=== PATIENT | female | born 1980 | race Caucasian/White ===

== ENCOUNTER 2020-09-07 06:11 | Outpatient (REF) | payer BC, SELFPAY ==
[2020-09-07 12:08] LABS: Alanine Aminotransferase 37 U/L (0-31); Albumin Level 3.9 g/dL (3.5-5.0); Alkaline Phosphatase 96 U/L (39-117); Anion Gap 13 (12-20); Aspartate Amino Transferase 30 U/L (5-31); Bilirubin Total < 0.2 mg/dL (0.0-1.0); Blood Urea Nitrogen 18 mg/dL (9-16); Calcium 8.4 mg/dL (8.4-10.2); Carbon Dioxide 26 mmol/L (22-29); Chloride 105 mmol/L (96-108); Cholesterol 199 mg/dL; Estimated Glomerular Filt Rate > 60; Glucose Fasting 106 mg/dL (60-99); HDL Cholesterol 45 mg/dL; LDL Cholesterol Calculated 123 mg/dl; Potassium 4.2 mmol/L (3.3-5.1); Sodium 140 mmol/L (135-145); Total Protein 6.9 g/dL (6.5-8.0); Triglycerides 158 mg/dL
[2020-09-07 12:14] LABS: TSH reflex Free T4 4.41 uIU/mL (0.32-4.0)
[2020-09-07 12:32] LABS: Vitamin B12 578 pg/mL (200-900)
[2020-09-07 13:28] LABS: Free T4 (Free Thyroxine) 0.82 ng/dL (0.71-1.85)
== END 2020-09-07 06:12 | disposition home or self-care (01) ==
LOC: HO.HMGCLDS 06:11
PROVIDERS: PCP Nurse Practitioner Family; Visit Provider Nurse Practitioner Family
DX: Z00.00 Encounter for general adult medical examination without abnormal findings (principal); R20.0 Anesthesia of skin; R74.8 Abnormal levels of other serum enzymes
CPT/HCPCS: 36415; 80053; 80061; 82607; 84439; 84443

== ENCOUNTER 2020-09-26 07:03 | Outpatient (REF) | payer BC, SELFPAY ==
[2020-09-27 06:06] LABS: Thyroid Peroxidase Antibodies <1 IU/mL (<9)
== END 2020-09-26 07:04 | disposition home or self-care (01) ==
LOC: HO.WFDLDS 07:03
PROVIDERS: Visit Provider Nurse Practitioner Family
DX: R79.89 Other specified abnormal findings of blood chemistry (principal)
CPT/HCPCS: 36415; 84443; 86376

== ENCOUNTER 2020-09-28 08:50 | Outpatient (REF) | payer BC, SELFPAY ==
--- NOTE | ~2020-09-28 | US_ITS ---
EXAMINATION: US ABDOMEN COMPLETE CLINICAL INFORMATION: Abnormal levels of other serum enzymes. COMPARISON: None TECHNIQUE: Real-time imaging of the abdominal viscera. FINDINGS: PANCREAS: The head and neck of the pancreas are normal. The body and tail the pancreas are obscured by gas. ABDOMINAL AORTA: The proximal, mid, and distal segments are normal in caliber. INFERIOR VENA CAVA: Visualized portions are normal. LIVER: The liver is mildly increased in echogenicity. The liver is normal in size. The liver contour is normal. No focal hepatic lesion. There is no intrahepatic biliary duct dilatation seen. GALLBLADDER: Surgically absent. COMMON BILE DUCT: Normal in caliber measuring 0.56 cm in diameter. RIGHT KIDNEY: Normal. No hydronephrosis. No renal calculi or focal parenchymal lesions. The kidney measures 8.9 cm in maximum dimension. LEFT KIDNEY: Normal. No hydronephrosis. No renal calculi or focal parenchymal lesions. The kidney measures 10.1 cm in maximum dimension. SPLEEN: Normal. The spleen measures 9.9 cm in maximum dimension. FREE FLUID: None. US/US abdomen complete IMPRESSION: 1. Mild increase in liver echogenicity which is typically reflective of hepatic steatosis. 2. Status post cholecystectomy. No dilatation of intrahepatic bile ducts.
== END 2020-09-28 08:51 | disposition home or self-care (01) ==
LOC: HO.HMGCX 08:50
PROVIDERS: PCP Nurse Practitioner Family; Visit Provider Nurse Practitioner Family
DX: R74.8 Abnormal levels of other serum enzymes (principal)
CPT/HCPCS: 76700

== ENCOUNTER 2020-10-24 09:07 | Outpatient (REF) | payer BC, SELFPAY ==
[2020-10-27 09:57] LABS: HPV mRNA E6/E7 rflx Not Detected (Not Detected)
== END 2020-10-24 09:08 | disposition home or self-care (01) ==
LOC: HO.LAB 09:07
PROVIDERS: PCP Nurse Practitioner Family; Visit Provider Advanced Practice Midwife
DX: Z01.419 Encounter for gynecological examination (general) (routine) without abnormal findings (principal); Z11.51 Encounter for screening for human papillomavirus (HPV); Z80.9 Family history of malignant neoplasm, unspecified
CPT/HCPCS: 87624; 88142

== ENCOUNTER 2020-10-31 08:12 | Outpatient (REF) | payer BC, SELFPAY ==
--- NOTE | ~2020-10-31 | MM_ITS ---
EXAMINATION: MM SCREENING DIGITAL BREAST TOMOSYNTHESIS, BILATERAL CLINICAL INFORMATION: Screening. Asymptomatic. No prior breast imaging. Family history breast cancer, maternal aunt. The lifetime risk of breast cancer based on the Tyrer-Cuzick Model is 17%. COMPARISON: None (current study represents initial baseline exam). TECHNIQUE: Digital breast tomosynthesis is performed in both the craniocaudal and mediolateral oblique views along with computer-aided detection (CAD). Synthesized 2D images are generated from the tomosynthesis. Additional right view is provided. FINDINGS: There are scattered areas of fibroglandular density (ACR BI-RADS breast composition Category b). Breast tissue composition borders on heterogeneously the anterior upper outer quadrants. There is no significant mass or architectural abnormality or abnormal calcifications. The axilla and skin contours are unremarkable. MM/MM tomosynthesis screening BI IMPRESSION: No mammographic evidence of malignancy. ASSESSMENT: BI-RADS 1: Negative RECOMMENDATION: Routine annual mammography screening. This patient's information was entered into a reminder system with a target due date for their next mammogram.
== END 2020-10-31 08:13 | disposition home or self-care (01) ==
LOC: HO.MAMMO 08:12
PROVIDERS: Visit Provider Nurse Practitioner Family
DX: Z12.31 Encounter for screening mammogram for malignant neoplasm of breast (principal)
CPT/HCPCS: 77063; 77067

== ENCOUNTER 2020-12-05 | Outpatient (REF) | payer BC, SELFPAY ==
[2020-12-05 14:38] LABS: Leukocytes Stool Qualitative NEGATIVE (NEGATIVE)
[2020-12-05 15:44] LABS: CDiff Gene PCR POSITIVE (Negative)
[2020-12-05 16:19] LABS: CDIFF Internal ctrl Dots and bkg OK (V); CDiff Toxin Negative (Negative)
== END 2020-12-05 00:01 | disposition home or self-care (01) ==
LOC: HO.HMGCLNP
PROVIDERS: Visit Provider Nurse Practitioner Family
DX: R19.7 Diarrhea, unspecified (principal)
CPT/HCPCS: 87045; 87046; 87177; 87209; 87324; 87329; 87338; 87493; 89055

== ENCOUNTER 2021-01-18 | Outpatient (REF) | payer BC, SELFPAY ==
[2021-01-18 15:09] LABS: CDiff Gene PCR POSITIVE (Negative)
[2021-01-18 15:58] LABS: CDIFF Internal ctrl Dots and bkg OK (V); CDiff Toxin Negative (Negative)
== END 2021-01-18 00:01 | disposition home or self-care (01) ==
LOC: HO.HMGCLNP
PROVIDERS: Visit Provider Hospitalist
DX: B96.89 Other specified bacterial agents as the cause of diseases classified elsewhere (principal)
CPT/HCPCS: 87324; 87493

== ENCOUNTER → 2021-02-06 08:09 | Outpatient (BNVA) | payer BC, SELFPAY | PROVIDERS: PCP Nurse Practitioner Family; Referring Provider Nurse Practitioner Family; Visit Provider Physician Assistant ==

== ENCOUNTER → 2021-07-16 14:08 | Outpatient (BNVA) | payer BC, SELFPAY | PROVIDERS: PCP Nurse Practitioner Family; Visit Provider Physician Assistant ==

== ENCOUNTER 2021-07-31 08:35 | Outpatient (REF) | payer BC, SELFPAY ==
[2021-07-31 10:47] LABS: MANUAL DIFF FLAG NO
[2021-07-31 10:50] LABS: Basophils Absolute Auto 0.1 X10*3/uL (0.0-0.2); Basophils Percent Auto 0.5 % (0-2); Eosinophils Absolute Auto 0.1 X10*3/uL (0.0-0.4); Eosinophils Percent Auto 1.1 % (0-4); Hematocrit 37.7 % (37.0-47.0); Hemoglobin 11.9 g/dl (12.0-16.0); Imm Gran Abs Auto 0.04 X10*3/uL (0.00-0.03); Imm Gran Pct Auto 0.4 % (0.0-0.4); Lymphocytes Absolute Auto 2.8 X10*3/uL (1.2-4.9); Lymphocytes Percent Auto 29.4 % (20-40); Mean Corpuscular HGB Conc 31.6 g/dl (31.0-35.0); Mean Corpuscular Hemoglobin 28.3 pg (27.0-33.0); Mean Corpuscular Volume 89.5 fL (80.0-98.0); Mean Platelet Volume 10.4 fL (9.4-12.3); Monocytes Absolute Auto 0.5 X10*3/uL (0.1-1.2); Neutrophils Absolute Auto 6.1 x10*3/uL (2.0-8.3); Neutrophils Percent Auto 63.6 % (45-73); Platelet Count 402 X10*3/uL (160-400); Red Blood Count 4.21 X10*6/uL (4.20-5.50); White Blood Count 9.6 X10*3/uL (4.8-10.8)
[2021-07-31 11:10] LABS: Alanine Aminotransferase 19 U/L (0-31); Alkaline Phosphatase 95 U/L (39-117); Anion Gap 11 (12-20); Aspartate Amino Transferase 14 U/L (5-31); Bilirubin Total 0.3 mg/dL (0.0-1.0); Blood Urea Nitrogen 9 mg/dL (9-16); C Reactive Protein 2.98 mg/dL (< or = 0.50); Calcium 9.2 mg/dL (8.4-10.2); Carbon Dioxide 26 mmol/L (22-29); Chloride 105 mmol/L (96-108); Estimated Glomerular Filt Rate > 60; Glucose Random 113 mg/dL (60-115); Potassium 4.2 mmol/L (3.3-5.1); Sodium 138 mmol/L (135-145); Total Protein 7.1 g/dL (6.5-8.0)
[2021-07-31 11:22] LABS: TSH reflex Free T4 1.57 uIU/mL (0.32-4.0); Thyroid Stimulating Hormone 1.58 uIU/mL (0.32-4.0)
[2021-07-31 11:30] LABS: Erythrocyte Sedimentation Rate 18 MM/HR (0-20)
[2021-08-02 08:02] LABS: Transglutaminase IgA <1.0 U/mL
== END 2021-07-31 08:36 | disposition home or self-care (01) ==
LOC: HO.WFDLDS 08:35
PROVIDERS: Nurse Practitioner Family; Visit Provider Physician Assistant
DX: K59.09 Other constipation (principal); R19.7 Diarrhea, unspecified
CPT/HCPCS: 36415; 80053; 84443; 85025; 85652; 86140; 86364

== ENCOUNTER 2021-08-05 09:49 | Outpatient (REF) | payer BC, SELFPAY ==
[2021-08-05 12:15] LABS: CDiff Gene PCR NEGATIVE (Negative)
[2021-08-05 16:54] LABS: C Reactive Protein 2.27 mg/dL (< or = 0.50)
[2021-08-05 17:40] LABS: Erythrocyte Sedimentation Rate 18 MM/HR (0-20)
[2021-08-09 20:56] LABS: Calprotectin, Fecal 19 mcg/g
== END 2021-08-05 09:50 | disposition home or self-care (01) ==
LOC: HO.WFDLNP 09:49
PROVIDERS: PCP Nurse Practitioner Family; Visit Provider Physician Assistant
DX: R19.7 Diarrhea, unspecified (principal)
CPT/HCPCS: 83993; 85652; 86140; 87493

== ENCOUNTER 2021-09-02 08:31 | Outpatient (REF) | payer BC, SELFPAY ==
[2021-09-02 11:29] LABS: MANUAL DIFF FLAG NO
[2021-09-02 11:38] LABS: Appearance Urine CLEAR; Color Urine YELLOW; Glucose Urine UA NEG (NEG); Leukocyte Esterase Urine NEG (NEG); Nitrite Urine NEG (NEG); PH 5.5 (5.0-8.0); Specific Gravity - Urine >= 1.030 (1.005-1.025); UACC Culture Trigger NO; Urine Blood 2+ (NEG); Urine Ketones NEG (NEG); Urine Protein NEG (NEG-TRACE)
[2021-09-02 11:49] LABS: Mucus Urine 2+ /LPF; Squamous Epithelial Cell Urine 1+ /LPF; WBC Urine 0 /HPF (0-4)
[2021-09-02 11:50] LABS: Basophils Percent Auto 0.5 % (0-2); Eosinophils Absolute Auto 0.1 X10*3/uL (0.0-0.4); Eosinophils Percent Auto 1.5 % (0-4); Hematocrit 39.4 % (37.0-47.0); Hemoglobin 12.5 g/dl (12.0-16.0); Imm Gran Abs Auto 0.03 X10*3/uL (0.00-0.03); Imm Gran Pct Auto 0.4 % (0.0-0.4); Lymphocytes Absolute Auto 2.4 X10*3/uL (1.2-4.9); Lymphocytes Percent Auto 28.7 % (20-40); Mean Corpuscular HGB Conc 31.7 g/dl (31.0-35.0); Mean Corpuscular Hemoglobin 28.8 pg (27.0-33.0); Mean Corpuscular Volume 90.8 fL (80.0-98.0); Mean Platelet Volume 11.1 fL (9.4-12.3); Monocytes Absolute Auto 0.4 X10*3/uL (0.1-1.2); Neutrophils Absolute Auto 5.3 x10*3/uL (2.0-8.3); Neutrophils Percent Auto 63.9 % (45-73); Platelet Count 361 X10*3/uL (160-400); Red Blood Count 4.34 X10*6/uL (4.20-5.50); Red Cell Distribution Width 13.8 % (11.0-16.0); White Blood Count 8.2 X10*3/uL (4.8-10.8)
[2021-09-02 11:58] LABS: Alanine Aminotransferase 18 U/L (0-31); Albumin Level 4.1 g/dL (3.5-5.0); Alkaline Phosphatase 88 U/L (39-117); Anion Gap 10 (12-20); Aspartate Amino Transferase 12 U/L (5-31); Bilirubin Total 0.5 mg/dL (0.0-1.0); Blood Urea Nitrogen 10 mg/dL (9-16); Calcium 9.6 mg/dL (8.4-10.2); Carbon Dioxide 28 mmol/L (22-29); Chloride 107 mmol/L (96-108); Cholesterol 187 mg/dL; Estimated Glomerular Filt Rate > 60; Glucose Fasting 107 mg/dL (60-99); HDL Cholesterol 42 mg/dL; LDL Cholesterol Calculated 101 mg/dl; Potassium 4.3 mmol/L (3.3-5.1); Sodium 141 mmol/L (135-145); Total Protein 7.2 g/dL (6.5-8.0); Triglycerides 221 mg/dL
[2021-09-02 12:25] LABS: TSH reflex Free T4 1.55 uIU/mL (0.32-4.0)
== END 2021-09-02 08:32 | disposition home or self-care (01) ==
LOC: HO.HMGCLDS 08:31
PROVIDERS: PCP Nurse Practitioner Family; Visit Provider Nurse Practitioner Family
DX: Z00.00 Encounter for general adult medical examination without abnormal findings (principal); R53.83 Other fatigue
CPT/HCPCS: 36415; 80053; 80061; 81001; 84443; 85025

== ENCOUNTER 2021-10-15 11:11 | Day surgery (SDC) | payer BC, SELFPAY ==
--- NOTE | 2021-10-14 13:22 | P.CONAN_ITS ---
Documented by User: Shira Salazar NP 10/14/21 13:23 HPI - Anesthesia Eval Consult details Narrative: 41yo F for Colonoscopy PMFSH Active Problems Active Problems: All Active Problems (Updated 09/02/21 @ 12:55 by Angel Manning, [facility]) Fatigue (Acute) C. difficile diarrhea (Acute) Diarrhea (Acute) Elevated liver enzymes (Acute) Elevated TSH (Acute) Family history of uterine cancer (Acute) Family history of ovarian cancer (Acute) Screening for breast cancer (Acute) Numbness in both hands (Acute) Physical exam (Acute) Screening for cervical cancer (Acute) Past Medical History Medical History C. difficile diarrhea Fatty liver Family History Family History Father Hx of diabetes mellitus Mother Hx of diabetes mellitus Maternal Aunt History of breast cancer Cervical cancer Mother Ovarian cancer Uterine cancer Surgical History Surgical History History of carpal tunnel release Hx of cholecystectomy Hx of oral surgery Social History Social History Housing: House Alcohol intake: current Alcohol intake frequency: a few times a month Patient Tobacco Use Status: Never used Tobacco Second Hand Smoke Exposure: No Use of substances other than those prescribed or required for medical reasons: No Are you DNR?: No Advance Directives: No Advance Directives Information Provided: Yes Recently lost weight without trying: No Current occupational status: employed Sexual orientation: Lesbian/Gregg/Homosexual Meds Allergies Allergy/AdvReac Type Severity Reaction Status Date / Time No Known Allergies Allergy Verified 09/02/21 08:16 [No Known Allergies*] Exam Exam Date and Time: October 14, 2021 1322 Pertinent Lab Results Pertinent Lab Results: Laboratory Tests 09/02/21 09/02/21 08:39 08:39 WBC 8.2 Hgb 12.5 Hct 39.4 Plt Count 361 Sodium 141 Potassium 4.3 Chloride 107 Carbon Dioxide 28 BUN 10 Creatinine 0.76 Assessment and Plan Assessment Anesthesia Assessment: Chart Reviewed Documented by User: Althea Montez MD 10/15/21 13:01 PMFSH Past Medical History Medical History C. difficile diarrhea Fatty liver Family History Family History Father Hx of diabetes mellitus Mother Hx of diabetes mellitus Maternal Aunt History of breast cancer Cervical cancer Mother Ovarian cancer Uterine cancer Surgical History Surgical History History of carpal tunnel release Hx of cholecystectomy Hx of oral surgery History of Problems with Anesthesia: No Social History Social History Housing: House Alcohol intake: current Alcohol intake frequency: a few times a month Patient Tobacco Use Status: Never used Tobacco Second Hand Smoke Exposure: No Use of substances other than those prescribed or required for medical reasons: No Are you DNR?: No Advance Directives: No Advance Directives Information Provided: Yes Recently lost weight without trying: No Current occupational status: employed Sexual orientation: Lesbian/Gregg/Homosexual Meds Allergies Allergy/AdvReac Type Severity Reaction Status Date / Time No Known Allergies Allergy Verified 09/02/21 08:16 [No Known Allergies*] Exam Airway Mallampati Class: II TM Dist: >3cm Neck ROM: Full Loose/Missing/Broken Teeth: No Heart: RRR Lungs: CTA Assessment and Plan Assessment Anesthesia Assessment: Anesthesia Plan Discussed Final Anesthetic Review History of Problems with Anesthesia: No NPO: Yes ASA Class: II Final Preanesthetic Review: Meds/Allgs Chart Reviewed, Consent Obtained/Reviewed and Anes Risks/Benef Reviewed Patient Risk: Low Procedure Risk: Intermediate Anesthetic Plan Anesthetic Plan: MAC: Disposition: Standard PACU
[2021-10-15 11:44] VITALS: BMI 38.0
[2021-10-15 11:52] LABS: UPreg QC Valid YES; Urine Pregnancy NEGATIVE (NEGATIVE)
[2021-10-15 12:24] VITALS: BP 143/96; PULSE 98; RESP 18; TEMP 36.6; O2SAT 98
[2021-10-15] MEDS: Lactated Ringers 1,000 ML 100 ML IVCONT (12:27)
--- NOTE | 2021-10-15 12:28 | P.HPSUR_ITS ---
Pre-Procedural Eval Section A Date of Service: 10/15/21 Section B Chief Complaint: Diarrhea, Details of Present Illness: altered bowel habit, epigastric pain, fullness Relevant Family History (Specify if Yes): No Relevant Social History: None Present Medications: see Short Stay Collaborative assessment History of Previous Operations: Relevant previous surgery/procedure and date(s) (History of carpal tunnel release Hx of cholecystectomy Hx of oral surgery) Allergies: Allergies Allergy/AdvReac Type Severity Reaction Status Date / Time No Known Allergies Allergy Verified 09/02/21 08:16 [No Known Allergies*] Review of Systems Sugical H&P ROS: Negative: Constitution, Cardiovascular, Respiratory, Neurological, Psychiatric, Hem-Onc, Allergic/Immunologic, Gastrointestinal, Genitourinary, Musculoskeletal, Integumentary, Endocrine and Eyes/Ears/Nose/T hroat Exam Surgical H&P Exam: Normal: HEENT, Normal: Heart, Normal: Lungs, Normal: Extremities, Normal: Abdomen, Normal: Skin and Normal: Neurological Plan Diagnosis/Plan: Change (EGD added due to epigastric pain and fullness to r/o PUD, GOO etc) I have reviewed the history and physical and performed a pertinent physical examination on my patient. No changes have occurred unless specified.EGD added
--- NOTE | 2021-10-15 12:29 | PM.OP ---
Brief Operative Note Date of Service: 10/15/21 Pre-op diagnosis: altered bowel habit, epigastric pain, fullness Post-op diagnosis: same Procedure: see op note Surgeon: Lani Zabala MD Anesthesia: MAC Was an Sand Control Worker used for this Procedure?: No Estimated blood loss (mL): 0 Condition: stable Disposition: PACU
--- NOTE | 2021-10-15 12:30 | W.PM.OPN ---
Operative Note Operative Note Date of Service: 10/15/21 Narrative: Operative Information Procedure Description: EGD, Colonoscopy Indication: altered bowel habit, epigastric pain, fullness Anesthesia: MAC FLEXIBLE TRANSORAL UPPER GASTROINTESTINAL ENDOSCOPY AND COLONOSCOPY PROCEDURE NOTE UPPER ENDOSCOPY Consent: Indications for the procedure and potential complications of bleeding, perforation, reaction to medications and missed diagnosis were discussed with the patient and informed consent was obtained. Instrument: Olympus GIF H 190 J mid size upper endoscope Monitoring: Vital signs and clinical assessment, continuous EKG monitoring, Pulse oximetry, Carbon Dioxide monitoring and blood pressure monitoring were done throughout the procedure. Procedure: The patient was placed in the left lateral decubitis position and pre-procedure medications were administered and a bite block was placed. The endoscope was inserted into the mouth and advanced under direct vision to the third part of duodenum. A careful inspection was made as the upper endoscope was withdrawn including a retroflexed examination of the proximal stomach; Findings and interventions are described below. Findings: Larynx:normal Esophagus: GE junction at 35 cm, diaphragm hiatus at 37 cm, 2 cm sliding hiatal hernia noted. erosive streaks noted LA grade C erosive esophagitis Stomach: patchy erythema. Biopsies were obtained. Grade 2 flap valve on retroflexed examination of the cardia. There also appeared to be reduced gastric motility. Duodenum: Normal bulb and descending duodenum, bx taken Intervention: Biopsies as noted above COLONOSCOPY Instrument: Olympus variable stiffness pediatric scope 190L Colonoscopy Monitoring: Vital signs and clinical assessment, continuous EKG monitoring, Pulse oximetry, Carbon Dioxide monitoring and blood pressure monitoring were done throughout the procedure. Colon withdrawal time was 10 minutes. Procedure: The patient was placed in the left lateral decubitis position and pre-procedure medications were administered. After a digital rectal examination of the ano-rectum, the video colonoscope was inserted into the rectum and advanced through the colon to the cecum/TI. The colonoscope was slowly withdrawn in a retrograde panoramic fashion and the colon mucosa was carefully examined including a retroflexed view of the rectum. Findings and interventions are described below. Procedure Difficulty: easy Findings: Terminal Ileum-normal, bx taken random colon bx taken Cecum:normal Ascending Colon: normal Transverse Colon -normal Descending Colon:normal Sigmoid Colon:few small inverted tics noted Rectum: Retroflexion with small internal hemorrhoids, grade I, 10 mm sessile polyp removed with cold snare Anorectum - normal Colon preparation: [place] Bowel Preparation Scale Right colon; 3 Transverse colon: 3 Left colon; 3 (0 = Unprepared colon segment with mucosa not seen due to solid stool that cannot be cleared. 1 = Portion of mucosa of the colon segment seen, but other areas of the colon segment not well seen due to staining, residual stool and/or opaque liquid. 2 = Minor amount of residual staining, small fragments of stool and/or opaque liquid, but mucosa of colon segment seen well. 3 = Entire mucosa of colon segment seen well with no residual staining, small fragments of stool or opaque liquid) Impression and Post Procedure Diagnosis: Endoscopy Findings: erosive esophagitis hiatal hernia, small gastritis possible reduced gastric motility Colonoscopy Findings: polyp internal hemorrhoids diverticular disease Plan: Await Pathology results Repeat Colonoscopy in 5 years if adenomatous polyp, 10 yrs if hyperplastic or earlier if clinically indicated High fiber diet leaflet avoid straining at stool, epsom salts and sitz bath, anusol supps or cream Check nsaid hx and if using PPI, if not using PPI then can try omeprazole 40 mg BID for 3 months and titrate down based on response Above findings were reviewed with the patient and relevant handouts were provided if indicated.
[2021-10-15 13:15] VITALS: BP 107/69; PULSE 87; RESP 18; TEMP 36.4; O2SAT 100
[2021-10-15 13:30] VITALS: BP 136/96; PULSE 89; RESP 18; TEMP 36.4; O2SAT 99
== END 2021-10-15 13:56 | disposition home or self-care (01) ==
PROVIDERS: Nurse Practitioner; PCP Nurse Practitioner Family; Visit Provider Internal Medicine Gastroenterology
PROC: (CPT 45385; principal; 2021-10-15 13:00)
DX: R19.7 Diarrhea, unspecified (principal); K63.5 Polyp of colon; K62.1 Rectal polyp; K64.0 First degree hemorrhoids; K29.50 Unspecified chronic gastritis without bleeding; K20.80 Other esophagitis without bleeding; K44.9 Diaphragmatic hernia without obstruction or gangrene; K76.0 Fatty (change of) liver, not elsewhere classified; Z86.19 Personal history of other infectious and parasitic diseases; Z90.49 Acquired absence of other specified parts of digestive tract; Z79.899 Other long term (current) drug therapy
CPT/HCPCS: 45385; 45380; 43239; 81025; 88305; 88307; 88342

== ENCOUNTER → 2021-10-29 15:02 | Outpatient (BNVA) | payer BC, SELFPAY | PROVIDERS: PCP Nurse Practitioner Family; Visit Provider Physician Assistant | DX: R19.7 Diarrhea, unspecified (principal) ==

== ENCOUNTER 2021-11-11 08:32 | Outpatient (REF) | payer BC, SELFPAY ==
--- NOTE | ~2021-11-11 | MM_ITS ---
EXAMINATION: MM SCREENING DIGITAL BREAST TOMOSYNTHESIS, BILATERAL CLINICAL INFORMATION: Screening. Asymptomatic. The lifetime risk of breast cancer based on the Tyrer-Cuzick Model is 12.0%. COMPARISON: Mammography: October 31, 2020 TECHNIQUE: Digital breast tomosynthesis is performed in both the craniocaudal and mediolateral oblique views along with computer-aided detection (CAD). Synthesized 2D images are generated from the tomosynthesis. FINDINGS: The breasts are heterogeneously dense, which may obscure small masses (ACR BI-RADS breast composition Category c). There are no significant masses, abnormal calcifications, or other abnormalities. MM/MM tomosynthesis screening BI IMPRESSION: There are no significant changes from prior study. ASSESSMENT: BI-RADS 1: Negative RECOMMENDATION: Routine annual mammography screening. This patient's information was entered into a reminder system with a target due date for their next mammogram.
== END 2021-11-11 08:33 | disposition home or self-care (01) ==
LOC: HO.MAMMO 08:32
PROVIDERS: PCP Nurse Practitioner Family; Visit Provider Nurse Practitioner Family
DX: Z12.31 Encounter for screening mammogram for malignant neoplasm of breast (principal)
CPT/HCPCS: 77063; 77067

== ENCOUNTER → 2021-11-12 13:44 | Outpatient (BNVA) | payer BC, SELFPAY | PROVIDERS: PCP Nurse Practitioner Family; Referring Provider Nurse Practitioner Family; Visit Provider Physician Assistant | DX: R19.7 Diarrhea, unspecified (principal) ==

== ENCOUNTER 2022-12-01 08:05 | Outpatient (REF) | payer BC, SELFPAY ==
--- NOTE | ~2022-12-01 | MM_ITS ---
EXAMINATION: MM SCREENING DIGITAL BREAST TOMOSYNTHESIS, BILATERAL CLINICAL INFORMATION: Screening. Asymptomatic. The lifetime risk of breast cancer based on the Tyrer-Cuzick Model is 12%. COMPARISON: Mammography: 11/11/2021, 10/31/2020 (baseline) TECHNIQUE: Digital breast tomosynthesis is performed in both the craniocaudal and mediolateral oblique views along with computer-aided detection (CAD). Synthesized 2D images are generated from the tomosynthesis. FINDINGS: There are scattered areas of fibroglandular density (ACR BI-RADS breast composition Category b). There are no significant masses, abnormal calcifications, or other abnormalities. Breast tissue composition borders on heterogeneously dense in the anterior breasts similar to prior studies. There is no developing density or architectural abnormality. The axilla and skin contours are unremarkable. MM/MM tomosynthesis screening BI IMPRESSION: No mammographic evidence of malignancy. ASSESSMENT: BI-RADS 1: Negative RECOMMENDATION: Routine annual mammography screening. This patient's information was entered into a reminder system with a target due date for their next mammogram.
== END 2022-12-01 08:06 | disposition home or self-care (01) ==
LOC: HO.MAMMO 08:05
PROVIDERS: PCP Nurse Practitioner Family; Visit Provider Nurse Practitioner Family
DX: Z12.31 Encounter for screening mammogram for malignant neoplasm of breast (principal)
CPT/HCPCS: 77063; 77067

== ENCOUNTER 2023-09-30 13:26 | Outpatient (AMB) | payer BC, SELFPAY ==
--- NOTE | 2023-09-30 13:33 | MHC.PC.OV ---
Vital Signs 09/30/23 13:35 Height 5 ft 3 in Weight 221 lb 4 oz BMI 39.2 BP 122/82 Blood Pressure Location Rt brachial Position Sitting Pulse 68 Pulse Source Pulse Oximeter Pulse Oximetry (%) 99 Oxygen Delivery Method Room Air Intake Visit Reasons: Annual PE Intake Note: Patient here for physical exam. last mammo: 2022 due this year last Pap: [id number] Allergies No Known Allergies [No Known Allergies*] Allergy (Verified 09/30/23 13:35) Medication List - Last Reconciled 09/30/23 by CHAPO Gaona metformin 1,500 mg PO DAILY omeprazole 40 mg PO BID Tobacco use date assessed: 09/30/23 Dental Screening Dental Screen Date: 09/30/23 Did you have a dental visit in the last 12 months?: Yes Did you have a dental problem in the last 6 months where you did not have access to dental care?: No Was dental information given to patient?: Patient has dentist HPI Annual PE HPI Details Pt is here for a PE. Will order labs. Mammo is up to date. 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 [facility] Medical History C. difficile diarrhea Fatty liver Surgical History Hx of esophagogastroduodenoscopy Hx of colonoscopy History of carpal tunnel release Hx of oral surgery Hx of cholecystectomy Family History Father Hx of diabetes mellitus Mother Hx of diabetes mellitus Maternal Aunt History of breast cancer Cervical cancer Mother Ovarian cancer Uterine cancer Social History Household Members Other:: Recently Housing: House Alcohol intake: current Alcohol intake frequency: a few times a month Patient Tobacco Use Status: Never used Tobacco Second Hand Smoke Exposure: No Current occupational status: employed Sexual orientation: Lesbian/Gregg/Homosexual Cognitive needs: No Hearing needs: No Vision needs: Yes Questionnaire PHQ-9 Over the last 2 weeks, how often have you been bothered by any of the following problems? 1. Little interest or pleasure in doing things: not at all 2. Feeling down, depressed, or hopeless: not at all 3. Trouble falling or staying asleep, or sleeping too much: several days 4. Feeling tired or having little energy: several days 5. Poor appetite or overeating: not at all 6. Feeling bad about yourself - or that you are a failure or have let yourself or your family down: not at all 7. Trouble concentrating on things, such as reading the newspaper or watching television: not at all 8. Moving or speaking so slowly that other people could have noticed. Or the opposite - being so fidgety or restless that you have been moving around a lot more than usual: not at all 9. Thoughts that you would be better off or of hurting yourself in some way: not at all Total score: 2 Depression Screening Interpretation: Negative Depression Screening Done: Yes 67193 - PHQ-9 Billing: Yes Source: Developed by Drs. Rubén Collins, Marilee Vilchis, Cricket Carvajal and colleagues, with an educational kathryn from [employer]. Thrive Questionnaire Date Thrive assessed: 09/30/23 I am a: Patient What is your living situation today?: I have a steady place to live Within the past 12 months, did the food you bought not last and you didn't have the money to get more?: Never true Within the past 12 months, did you worry whether your food would run out before you got money to buy more?: Never true Do you have trouble paying for medicines?: No Do you have trouble getting transportation to medical appointments?: No Do you have trouble paying your heating and electricity bill?: No Do you have trouble taking care of your child, family member or friend?: No Do you have trouble with day-to-day activities such as bathing, preparing meals, shopping, managing finances, etc.?: No Are you currently unemployed and looking for a job?: No Are you interested in more education?: Yes Currently or been in a relationship where the following occur: I choose not to answer this question THRIVE Score: 0 AUDIT C Alcohol Use Questionnaire (AUDIT-C) 1. How often do you have a drink containing alcohol?: Monthly or less 2. How many drinks containing alcohol do you have on a typical day when you are drinking?: 1 or 2 3. How often do you have six or more drinks on one occasion?: Never Total Score: 1 Score Reviewed/Action Taken: No MONICA-7 AMB Questionnaire MONICA-7 Date MONICA - 7 assessed: 09/30/23 Feeling nervous, anxious, or on edge: 0 = Not at all Not being able to stop or control worryin = Not at all Worrying too much about different things: 0 = Not at all Trouble relaxin = Not at all Being so restless that it is hard to sit still: 0 = Not at all Becoming easily annoyed or irritable: 0 = Not at all Feeling afraid as if something awful might happen: 0 = Not at all Total MONICA-7 score (0-4 normal; 5-9 mild; 10-14 moderate; 15-21 severe): 0 Source: Developed by Drs. Rubén Collins, Marilee Vilchis, Cricket Carvajal and colleagues, with an educational kathryn from [employer]. MONICA-7 Assessment Billing MONICA-7 Assessment Tool: MONICA-7 Assessment 64391 Review of Systems Const Denies chills and Denies fever(s) Eyes Denies blurry vision ENT Denies vertigo, Denies dizziness and Denies sore throat Card Denies chest pain at rest, Denies chest pain with activity, Denies diaphoresis, Denies dyspnea and Denies dyspnea on exertion Resp Denies cough, Denies dyspnea, Denies dyspnea on exertion and Denies wheezing GI Denies abdominal pain, Denies melena, Denies hematochezia, Denies constipation, Denies diarrhea and Denies loose stools Denies hematuria Musc Denies numbness and Denies tingling Skin/Breast Denies lesions Neuro Denies vertigo, Denies dizziness, Denies numbness and Denies tingling Psych Denies anxiety, Denies depression, Denies homicidal ideation, Denies suicidal ideation and Denies other (substance abuse) Aller/Immun Denies wheezing Physical exam (Primary Care) Vital Signs: Last Vital Signs Pulse 68 09/30/23 13:35 BP 122/82 09/30/23 13:35 Pulse Ox 99 09/30/23 13:35 Oxygen Delivery Method Room Air 09/30/23 13:35 BMI result Body Mass Index 39.2 Tobacco/Smoking Status: Tobacco use Status Tobacco use date assessed 09/30/23 09/30/23 13:40 Patient Tobacco Use Status Never used Tobacco 09/30/23 13:35 Depression Screening Interpretation: Negative Thrive Assessment: Date of Thrive Assessment Date Thrive assessed 09/02/21 09/30/23 13:35 Currently or been in a relationship where the following occur: I choose not to answer this question Const General: cooperative Nutritional Appearance: obese Orientation/consciousness: patient oriented x3 HENMT Head: Yes normal to inspection, Yes normocephalic and Yes atraumatic Ears: TM's normal bilaterally Eyes General: appearance normal, both eyes and all related structures Alignment and Position: alignment normal and position normal Neck Neck: Yes normal visual inspection and Yes no lymphadenopathy Thyroid: Thyroid normal Resp Effort & Inspection: normal respiratory effort Auscultation: clear to auscultation bilaterally Cardio Rate: regular rate Rhythm: regular rhythm Heart sounds: S1 normal heart sound present, S2 normal heart sound present and no murmurs GI Palpation (GI): Soft to palpation and nontender Auscultation: normal bowel sounds Skin Rashes: no rashes Neuro General: patient oriented x3, moves all extremities, no focal motor deficits and deep tendon reflexes 2+ bilaterally Romberg Test: Negative Psych Appearance: grossly normal Mental Status: mental status grossly normal Speech and movement: Normal speech and movement present Affect: normal affect Attitude: cooperative Thought process: Normal thought process present Thought content: Normal thought content present Insight: Good insight present (Psych) Judgement: Good judgement present (Psych) Assessment and Plan Assessment & Plan (1) Physical exam: Code(s): Z.00 - Encounter for general adult medical examination without abnormal findings Plan The patient agreed to the use of a biomedical repair technician for this encounter. Scribed for CHAPO Carter by Estella Santos biomedical repair technician, on 09/30/2023 at 13:50 EST. Orders: Orders Complete Blood Count Auto Diff Today Z00.00 - Encounter for general adult medical examination without abnormal findings Comprehensive [place]. Panel Fast Today Z00.00 - Encounter for general adult medical examination without abnormal findings TSH reflex Free T4 Today Z00.00 - Encounter for general adult medical examination without abnormal findings UA CC w/rflx Micro + Cult Today Z00.00 - Encounter for general adult medical examination without abnormal findings Lipid Panel Today Z00.00 - Encounter for general adult medical examination without abnormal findings Coding Level of Care Code Est Pt Prev Care 40-64y(65501) Diagnoses Physical exam Z00.00 Additional Codes MONICA-7 Assessment Billing - MONICA-7 Assessment Tool: MONICA-7 Assessment 91807 ([id number])
[2023-09-30 13:35] VITALS: BP 122/82; PULSE 68; O2SAT 99; BMI 39.2
== END 2023-09-30 14:03 | disposition home or self-care (01) ==
PROVIDERS: PCP Nurse Practitioner Family; Visit Provider Nurse Practitioner Family
DX: Z00.00 Encounter for general adult medical examination without abnormal findings (principal)
CPT/HCPCS: 99396

== ENCOUNTER 2023-11-13 10:41 | Outpatient (REF) | payer BC, SELFPAY ==
[2023-11-13 14:31] LABS: MANUAL DIFF FLAG NO
[2023-11-13 14:39] LABS: Basophils Absolute Auto 0.1 X10*3/uL (0.0-0.2); Basophils Percent Auto 0.5 % (0-2); Eosinophils Absolute Auto 0.1 X10*3/uL (0.0-0.4); Hematocrit 38.7 % (37.0-47.0); Hemoglobin 12.3 g/dl (12.0-16.0); Imm Gran Abs Auto 0.06 X10*3/uL (0.00-0.03); Imm Gran Pct Auto 0.7 % (0.0-0.4); Lymphocytes Absolute Auto 2.8 X10*3/uL (1.2-4.9); Lymphocytes Percent Auto 30.9 % (20-40); Mean Corpuscular HGB Conc 31.8 g/dl (31.0-35.0); Mean Corpuscular Hemoglobin 28.3 pg (27.0-33.0); Mean Platelet Volume 10.8 fL (9.4-12.3); Monocytes Absolute Auto 0.4 X10*3/uL (0.1-1.2); Monocytes Percent Auto 4.6 % (2-11); Neutrophils Absolute Auto 5.7 x10*3/uL (2.0-8.3); Neutrophils Percent Auto 62.3 % (45-73); Platelet Count 350 X10*3/uL (160-400); Red Blood Count 4.35 X10*6/uL (4.20-5.50); Red Cell Distribution Width 14.6 % (11.0-16.0); White Blood Count 9.1 X10*3/uL (4.8-10.8)
[2023-11-13 14:58] LABS: Appearance Urine Turbid; Color Urine Yellow; Glucose Urine UA Negative (Negative); Leukocyte Esterase Urine Negative (Negative); Nitrite Urine Negative (Negative); PH 5.5 (5.0-9.0); Specific Gravity - Urine 1.025 (1.005-1.025); UMIC TRIGGER UACC YES; Urine Blood Moderate (2+) (Negative); Urine Ketones Trace mg/dL (Negative); Urine Protein Trace mg/dL (Neg-Trace)
[2023-11-13 15:07] LABS: Alanine Aminotransferase 16 U/L (0-31); Albumin Level 4.1 g/dL (3.5-5.0); Alkaline Phosphatase 83 U/L (39-117); Anion Gap 9 (12-20); Aspartate Amino Transferase 16 U/L (5-31); Bilirubin Total 0.3 mg/dL (0.0-1.0); Blood Urea Nitrogen 10 mg/dL (9-16); Calcium 9.2 mg/dL (8.4-10.2); Carbon Dioxide 28 mmol/L (22-29); Chloride 108 mmol/L (96-108); Cholesterol 202 mg/dL (<200); Estimated Glomerular Filt Rate > 60; Glucose Fasting 103 mg/dL (60-99); HDL Cholesterol 47 mg/dL (>40); LDL Cholesterol Calculated 119 mg/dL (<100); Potassium 3.7 mmol/L (3.3-5.1); Sodium 141 mmol/L (135-145); Total Protein 7.4 g/dL (6.5-8.0); Triglycerides 182 mg/dL (<150)
[2023-11-13 15:10] LABS: TSH reflex Free T4 1.64 uIU/mL (0.32-4.0)
[2023-11-13 15:24] LABS: Bacteria Urine None Seen (None Seen); Calcium Oxalate Crystals Urine Present; WBC Urine 0-5 /HPF (0-5)
== END 2023-11-13 10:42 | disposition home or self-care (01) ==
LOC: HO.WFDLDS 10:41
PROVIDERS: Visit Provider Nurse Practitioner Family
DX: Z00.00 Encounter for general adult medical examination without abnormal findings (principal)
CPT/HCPCS: 36415; 80053; 80061; 81001; 84443; 85025

== ENCOUNTER → 2023-12-03 08:30 | Outpatient (BNV) | payer BC, SELFPAY | PROVIDERS: PCP Nurse Practitioner Family; Visit Provider Radiology Diagnostic Radiology | DX: Z12.31 Encounter for screening mammogram for malignant neoplasm of breast (principal) | CPT/HCPCS: 77063; 77067 ==

== ENCOUNTER 2023-12-03 08:32 | Outpatient (REF) | payer BC, SELFPAY | END 2023-12-03 08:33 | disposition home or self-care (01) | LOC: HO.MAMMO 08:32 | PROVIDERS: PCP Nurse Practitioner Family; Visit Provider Nurse Practitioner Family | DX: Z12.31 Encounter for screening mammogram for malignant neoplasm of breast (principal) | CPT/HCPCS: 77063; 77067 ==

== ENCOUNTER 2024-10-26 12:51 | Outpatient (AMB) | payer BC, SELFPAY ==
[2024-10-26 12:56] VITALS: BP 120/72; PULSE 63; O2SAT 98; BMI 38.8
--- NOTE | 2024-10-26 12:56 | MHC.PC.OV ---
Vital Signs 10/26/24 12:56 Height 5 ft 3 in Weight 219 lb BMI 38.8 BP 120/72 Blood Pressure Location Lt brachial Position Sitting Pulse 63 Pulse Source Pulse Oximeter Pulse Oximetry (%) 98 Oxygen Delivery Method Room Air Intake Visit Reasons: PE Tafe Lecturer Required: No Accompanied by: Self / Same As Patient Allergies No Known Allergies [No Known Allergies*] Allergy (Verified 10/26/24 12:56) Medication List - Last Reconciled 10/26/24 by LUZ MARIA Gaona- estradiol 2 mg PO DAILY medroxyprogesterone 10 mg PO DAILY omeprazole 40 mg PO BID Tobacco use date assessed: 10/26/24 Dental Screening Dental Screen Date: 10/26/24 Did you have a dental visit in the last 12 months?: Yes Did you have a dental problem in the last 6 months where you did not have access to dental care?: No Was dental information given to patient?: Patient has dentist HPI PE HPI Details History of Present Illness The patient is a 44-year-old female presenting with fertility-related concerns alongside possible diabetes mellitus. She is engaged in fertility testing and aspires to conceive a child with her partner. She acknowledges her obesity status and reports regular dermatological care due to prior incidents of moles and skin tags, mostly on her back. She has a history of consulting with an vacuum frame operator, notably with normal thyroid test results. The patient's concern for diabetes is being actively addressed through plans to obtain a fasting blood sugar test, with her commitment to fasting as directed. She denies a range of systemic symptoms and expresses no mental health concerns at this time. Health Maintenance - Screening for diabetes mellitus with fasting blood sugar testing planned. - Continuous monitoring of thyroid function with normal recent results. - Regular dermatological examinations and treatments. 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 - Regular consultations with a endocrinology teacher for skin-related issues. Review of Systems - Constitutional: Denies fevers and chills. - Respiratory: Denies shortness of breath. - Gastrointestinal: Denies abdominal pain, blood in stool, constipation, and diarrhea. - Mental health: Denies suicidal ideation and homicidal ideation. - Physical Exam General: Cooperative, healthy appearing, comfortable, no acute distress and well developed, obese Orientation: Patient oriented x3 Limitations: No limitations Head: Normal to inspection Ears: Hearing grossly normal bilaterally Nose: Normal external nose present Face and sinus: Normal facial exam Eyes: Appearance normal, both eyes and all related structures Neck: Normal visual inspection and Yes full ROM Respiratory: Normal respiratory effort and able to speak in complete sentences. Clear to auscultation bilaterally Cardiovascular: Regular rate and rhythm. Normal S1 and S2 GI: Normal to inspection. Soft to palpation and nontender Skin: No rashes or lesions noted, patient sees a endocrinology teacher regularly and has had moles and skin tags removed Neuro: Patient oriented x3 Extremities: Normal to inspection, patient is more obese Results Plan I will proceed with a fasting blood sugar test to evaluate the possibility of diabetes mellitus, given the patient's concern. Her current engagement in fertility testing with specialists is appropriate. The patient should continue regular dermatological care and monitoring. No immediate changes are required to her current medical approach until diagnostic test results are reviewed. Discussion Notes During the consultation, I discussed with the patient the potential for diabetes and the process for confirming it through a fasting blood sugar test. We reviewed the necessity of fasting and the implications of positive findings. The patient is also informed about her continued fertility testing with specialists and maintains routine dermatological appointments. I emphasized the need for follow-up should any concerning symptoms develop or if results indicate further action. Patient Instructions - Fast for 12 hours with only water allowed before the fasting blood sugar test. - Continue working with fertility specialists on family planning. - Maintain regular dermatology appointments for skin evaluations and any further concerns. - Report any new symptoms or changes in health immediately. [facility] Medical History C. difficile diarrhea Fatty liver Surgical History Hx of esophagogastroduodenoscopy Hx of colonoscopy History of carpal tunnel release Hx of oral surgery Hx of cholecystectomy Family History Father Hx of diabetes mellitus Mother Hx of diabetes mellitus Maternal Aunt History of breast cancer Cervical cancer Mother Ovarian cancer Uterine cancer Social History Household Members Other:: Recently Housing: House Alcohol intake: current Alcohol intake frequency: a few times a month Patient Tobacco Use Status: Never used Tobacco Second Hand Smoke Exposure: No Current occupational status: employed Sexual orientation: Lesbian/Gregg/Homosexual Cognitive needs: No Hearing needs: No Vision needs: Yes Questionnaire PHQ-9 Over the last 2 weeks, how often have you been bothered by any of the following problems? 1. Little interest or pleasure in doing things: not at all 2. Feeling down, depressed, or hopeless: not at all 3. Trouble falling or staying asleep, or sleeping too much: several days 4. Feeling tired or having little energy: several days 5. Poor appetite or overeating: not at all 6. Feeling bad about yourself - or that you are a failure or have let yourself or your family down: not at all 7. Trouble concentrating on things, such as reading the newspaper or watching television: not at all 8. Moving or speaking so slowly that other people could have noticed. Or the opposite - being so fidgety or restless that you have been moving around a lot more than usual: not at all 9. Thoughts that you would be better off or of hurting yourself in some way: not at all Total score: 2 Depression Screening Interpretation: Negative Depression Screening Done: Yes 18921 - PHQ-9 Billing: Yes Source: Developed by Drs. Rubén Collins, Marilee Vilchis, Cricket Carvajal and colleagues, with an educational kathryn from [employer]. Thrive Questionnaire Date Thrive assessed: 10/26/24 I am a: Patient What is your living situation today?: I have a steady place to live Within the past 12 months, did the food you bought not last and you didn't have the money to get more?: Never true Within the past 12 months, did you worry whether your food would run out before you got money to buy more?: Never true Do you have trouble paying for medicines?: No Do you have trouble getting transportation to medical appointments?: No Do you have trouble paying your heating and electricity bill?: No Do you have trouble taking care of your child, family member or friend?: No Do you have trouble with day-to-day activities such as bathing, preparing meals, shopping, managing finances, etc.?: No Are you currently unemployed and looking for a job?: No Are you interested in more education?: No Please select the resources that you would like help with: None Currently or been in a relationship where the following occur: No concerns reported THRIVE Score: 0 AUDIT C Alcohol Use Questionnaire (AUDIT-C) 1. How often do you have a drink containing alcohol?: Monthly or less 2. How many drinks containing alcohol do you have on a typical day when you are drinking?: 1 or 2 3. How often do you have six or more drinks on one occasion?: Less than monthly Total Score: 2 Score Reviewed/Action Taken: Yes MONICA-7 AMB Questionnaire MONICA-7 Date MONICA - 7 assessed: 10/26/24 Feeling nervous, anxious, or on edge: 0 = Not at all Not being able to stop or control worryin = Not at all Worrying too much about different things: 0 = Not at all Trouble relaxin = Several days Being so restless that it is hard to sit still: 0 = Not at all Becoming easily annoyed or irritable: 1 = Several days Feeling afraid as if something awful might happen: 0 = Not at all Total MONICA-7 score (0-4 normal; 5-9 mild; 10-14 moderate; 15-21 severe): 2 Source: Developed by Drs. Rubén Collins, Marilee Vilchis, Cricket Carvajal and colleagues, with an educational kathryn from [employer]. MONICA-7 Assessment Billing MONICA-7 Assessment Tool: MONICA-7 Assessment 94245 Physical exam (Primary Care) Vital Signs: Last Vital Signs Pulse 63 10/26/24 12:56 BP 120/72 10/26/24 12:56 Pulse Ox 98 10/26/24 12:56 Oxygen Delivery Method Room Air 10/26/24 12:56 BMI result Body Mass Index 38.8 Tobacco/Smoking Status: Tobacco use Status Tobacco use date assessed 10/26/24 10/26/24 12:58 Patient Tobacco Use Status Never used Tobacco 10/26/24 12:58 PHQ-9: PHQ-9 Score PHQ-9: Total score 2 10/26/24 12:58 Depression Screening Interpretation: Negative Thrive Assessment: Date of Thrive Assessment Date Thrive assessed 10/26/24 10/26/24 12:58 Currently or been in a relationship where the following occur: No concerns reported Coding Level of Care Code Est Pt Prev Care 40-64y(94359) Diagnoses Physical exam Z00.00 Additional Codes MONICA-7 Assessment Billing - MONICA-7 Assessment Tool: MONICA-7 Assessment 23461 ([id number]) PHQ-9 - 42563 - PHQ-9 Billing: Yes ([id number]) Assessment & Plan Assessment & Plan (1) Physical exam: Code(s): Z00.00 - Encounter for general adult medical examination without abnormal findings Category: Medical Plan . Orders: Orders TSH reflex Free T4 Today Z00.00 - Encounter for general adult medical examination without abnormal findings UA CC w/rflx Micro + Cult Today Z00.00 - Encounter for general adult medical examination without abnormal findings Lipid Panel Today Z00.00 - Encounter for general adult medical examination without abnormal findings Complete Blood Count Auto Diff Today Z00.00 - Encounter for general adult medical examination without abnormal findings Comprehensive [place]. Panel Fast Today Z00.00 - Encounter for general adult medical examination without abnormal findings
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
--- OUTSIDE RECORDS SUMMARY | 2024-10-26 13:29 | XMS_ITS | Data Portability ---
Author Organization [place] [facility] [employer], [employer] Address [address] [place] [id number] Care Team Providers Care Pharmaceutical Engineer Name Role Phone CRUZ HERMOSILLO Primary Care Provider CECE MARQUES Physician Financial Planning Assistant Unavailable CHUNG RUBIO Jelly Maker/Chamber Walker Unavaila ble Assessment Encounter Date Assessment Date Assessment LastModified by Organization Details LastModified Time 09/05/2024 09/05/2024 Chart prep time: 9:38-9:39 Face to face time with patient: 3:18-4:09 Documentation time: 4:09- 4:19 Total time spent on encounter: 62 E+M based on time _62__ min. Patient was informed they qualify for CCM services because of obesity, Type 2 Diabetes . Patient was notified there is a possibility of cost sharing responsibilities . Patient is aware that only one practitioner can furnish and bill for CCM during a calendar month. Patient has the right to stop CCM any time (effective at the end of that month). Patient must provide consent only once unless they switch to a different practice for coverage. After consent obtained the patient and the clinical staff reviewed chronic conditions to be addressed and the supervising provider created a care plan outlining the goals, planned interventions and will establish coordination of care. At the time of consent, it was discussed that CCM is a way in which to help manage care outside of the office setting, however, patient feels more accountable and secure in care if they were to continue appointments within the practice and face to face with clinical staff. The patient is aware that we will inform other providers involved in their care of their progress which is part of ongoing Care Plan. [email or web address] Not available 09/05/2024 17:58:18 10/24/2024 10/24/2024 Chart prep time: 9:25-9:27 Face to face time with patient: 2:22- 2:43 Documentation time: 2:43-2:50 Total time spent on encounter: 30 E+M based on time _30__ min. [email or web address] Not available 10/24/2024 14:50:08 Plan of Treatment Reminders Order Date Submit Date Provider Last Modified By Organization Details Last Modified Time Details Appointments 1st [facility] 2024 09:15A M Chung Rubio RD Not available Not available Not available [facility] 2024 10:30A M Cece Marques PA-C Not available Not available Not available Lab thyroid panel, serum 2024 025 GENIAC [facility], [address], [address], [place], [address], 10/10/2024 15:17:39 T3, free, serum or plasma 2024 025 [facility], [address], [address], [place], [address], 10/10/2024 15:17:41 T3, reverse, serum 2024 025 [facility], [address], [address], [place], [address], 10/10/2024 15:17:37 uric acid, serum or plasma 2024 025 [facility], [address], [address], [place], [address], 10/10/2024 15:17:36 T4, free, serum 2024 025 [facility], [address], [address], [place], [address], 10/10/2024 15:17:40 lipid panel, serum 2024 025 [email or web address] Reeb[facility], [address], [address], [place], [address], 09/12/2024 13:41:45 unlisted lab - cardio iq(R) insulin resistanc e panel with score 2024 025 FERDINAND [facility], [address], [address], [place], [address], 10/10/2024 15:17:38 Referral None recorded. Procedures None recorded. Surgeries None recorded. Imaging None recorded. Medication Orders None recorded. Patient TargetsNo targets recorded. Patient InstructionsNo instructions recorded. Reason for Referral None Reported. Results Created Date Observation Date Name Description Value Unit Range Abnormal Flag Note LastModifiedBy Organization Detail LastModifiedTime 09/20/1910/10/2024 URIC ACID uric acid 4.0 mg/dL 2.5-7. 0 normal Thera peuti c targe t for gout patie nts: <6.0 mg/dL Not Available [facility] - Manual Order Only [address], [place], [address], 10/10/2024 15:17:36 09/20/1910/10/2024 T3 REVER SE, LC/MS /MS T3 reverse, lc/MS/MS 26 NG/dL 8-25 high This test was devel caleb and its ely tical perfo rmanc e yeimi cteri stics have been deter mined by [facility] [place], [place]. It has not been clear ed or appro mame by the U.S. Food and Drug Admin istra tion. This assay has been valid ated pursu ant to the CLIA regul ation s and is used for clini todd purpo ses. Not Available [facility] - Manual Order Only [address], [place], [address], 10/10/2024 15:17:37 09/20/19 25 10/10/2024 CARDI O IQ(R) INSUL IN RESIS TANCE PANEL WITH SCORE insulin, intact, lc/MS/MS 5 uIU/m L < or = 16 Insul in mala ntrat ion can be conve rted to pmol/ L by apply ing the conve rsion facto r: 1 uIU/m L = 5.97 pmol/ L For addit ional infor robi nalex e refer to http: //[facility] babatunde rankin.Que stDia gnost ics.c om/fa q/FAQ 170 (This link is being provi ded for infor matio nal/e ducat ional purpo ses only. ) This test was devel oped and its ely tical perfo rmanc e yeimi cteri stics have been deter mined by [facility]. It has not been clear ed or appro mame by the FDA. This assay has been valid ated pursu ant to the CLIA regul ation s and is used for clini todd purpo ses. Not Available [facility] - Manual Order Only [address], [place], [address], 10/10/2024 15:17:38 09/20/19 25 10/10/2024 CARDI O IQ(R) INSUL IN RESIS TANCE PANEL WITH SCORE C-peptide, lc/MS/MS 2.08 NG/mL 0.68-2 .16 Not Available [facility] - Manual Order Only [address], [place], [address], 10/10/2024 15:17:38 09/20/19 25 10/10/2024 CARDI O IQ(R) INSUL IN RESIS TANCE PANEL WITH SCORE insulin resistance score 26 < or = 66 Insul in Sensi tive < 33; Impai red Insul in Sensi tivit y 33-66 ; Insul in Resis tant >66 A score below 33 is optim al. The insul in resis tance score corre lates with stead y state gluco se level s achie mame durin g an insul in suppr essio n test, a stand blanca resea rch test for insul in resis tance . The score is based on insul in and C-pep tide resul ts (Aguila cedeno F, Saige alvarado D, Jose Daniel CH, et al. Insul in resis tance proba bilit y score s for appar ently healt hy indiv idual s. J Endoc r Soc. 2018; 2(9): 1050- 1057) . For addit ional infor alex vega e refer to http: //[facility] babatunde rankin.Que stDia gnost ics.c om/fa q/FAQ 205 (This link is being provi ded for infor robi nal/e ducat ional purpo ses only. ) This test was devel oped and its ely tical perfo rmanc e yeimi cteri stics have been deter mined by [facility]. It has not been clear ed or appro mame by the FDA. This assay has been valid ated pursu ant to the CLIA regul ation s and is used for clini todd purpo ses. Not Available [facility] - Manual Order Only [address], [place], [address], 10/10/2024 15:17:38 09/20/19 25 10/10/2024 THYRO ID PEROX IDASE AND THYRO GLOBU ANA ANTIB ODIES thyroglobuli n antibodies <1 IU/mL < or = 1 normal Not Available [facility] - Manual Order Only [address], [place], [address], 10/10/2024 15:17:39 09/20/19 25 10/10/2024 THYRO ID PEROX IDASE AND THYRO GLOBU ANA ANTIB ODIES thyroid peroxidase antibodies 1 IU/mL <9 normal Not Available [facility] - Manual Order Only [address], [place], [address], 10/10/2024 15:17:39 09/20/19 25 10/10/2024 T4, FREE T4, free 1.2 NG/dL 0.8-1. 8 normal Not Available [facility] - Manual Order Only [address], [place], [address], 10/10/2024 15:17:40 04/14/20 25 10/10/2024 T3, FREE T3, free 2.5 pg/mL 2.3-4. 2 normal Not Available [facility] - Manual Order Only [address], [place], [address], 10/10/2024 15:17:41 09/20/19 25 10/10/2024 ADVAN REGINA LIPID PNL W/INF LAMMA TION, CARDI O IQ(R) cholesterol, total 153 mg/dL <200 Not Available [facility] - Manual Order Only [address], [place], [address], 10/10/2024 15:17:42 09/20/19 25 10/10/2024 ADVAN REGINA LIPID PNL W/INF LAMMA TION, CARDI O IQ(R) HDL cholesterol 43 mg/dL >[address] [facility] - Manual Order Only [address], [place], [address], 10/10/2024 15:17:42 09/20/19 25 10/10/2024 ADVAN REGINA LIPID PNL W/INF LAMMA TION, CARDI O IQ(R) triglyceride s 146 mg/dL <150 Not Available [facility] - Manual Order Only [address], [place], [address], 10/10/2024 15:17:42 09/20/19 25 10/10/2024 ADVAN REGINA LIPID PNL W/INF LAMMA TION, CARDI O IQ(R) LDL-choleste rol 85 mg/dL _(todd c) <100 Gareth able range <100 mg/dL for prima ry preve ntion ; <70 mg/dL for patie nts with CHD or diabe tic patie nts with >= 2 CHD risk facto rs. LDL-C is now calcu lated using the Sophia n-Hop kins calcu lauren n, which is a valid ated novel metho d april galvez acken than the Fried agusto equat ion in the estim ation of LDL-C . Sophia MARTINEZ et al. MONICA. 2013; 310(1 9): 2060- 2067 (http ://ed incir.comati on.ElectraTherm. com/f aq/FA Q164) LDL-C is now calcu lated using the Sophia n-Hop kins calcu lauren n, which is a valid ated novel metho d provi ding sarina r accur acy than the Fried agusto equat ion in the estim ation of LDL-C . Sophia MARTINEZ et al. MONICA. 2013; 310(1 9): 2060- 2067 (http ://ed ucati on.ElectraTherm. com/f aq/FA Q164) Not Available [facility] - Manual Order Only [address], [place], [address], 10/10/2024 15:17:42 09/20/19 25 10/10/2024 ADVAN REGINA LIPID PNL W/INF LAMMA TION, CARDI O IQ(R) chol/HDLC ratio 3.6 calc <5.0 Not Available [facility] - Manual Order Only [address], [place], [address], 10/10/2024 15:17:42 09/20/19 25 10/10/2024 ADVAN REGINA LIPID PNL W/INF LAMMA TION, CARDI O IQ(R) non HDL cholesterol 110 mg/dL _(todd c) <130 For patie nts with diabe mel plus 1 major ASCVD risk facto r, treat ing to a non-H DL-C goal of <100 mg/dL (LDL- C of <70 mg/dL ) is consi dered a thera peuti c optio n. For patie nts with diabe mel plus 1 major ASCVD risk facto r, treat ing to a non-H DL-C goal of <100 mg/dL (LDL- C of <70 mg/dL ) is consi dered a thera peuti c optio n. Not Available [facility] - Manual Order Only [address], [place], [address], 10/10/2024 15:17:42 09/20/19 25 10/10/2024 ADVAN REGINA LIPID PNL W/INF LAMMA TION, CARDI O IQ(R) LDL particle number 1502 nmol/ L <1138 high Relat tova Risk: Optim al <1138 ; Moder ate 1138- 1409; High >1409 . Male and Femal e Refer ence Range : 1016 to 2185 nmol/ L. Not Available [facility] - Manual Order Only [address], [place], [address], 10/10/2024 15:17:42 09/20/1910/10/2024 ADVAN REGINA LIPID PNL W/INF LAMMA TION, CARDI O IQ(R) LDL small 316 nmol/ L <142 high Relat tova Risk: Optim al <142; Moder ate 142-2 19; High >219. Male Refer ence Range : 123 to 441 nmol/ L; Femal e Refer ence Range : 115 to 386 nmol/ L. Not Available [facility] - Manual Order Only [address], [place], [address], 10/10/2024 15:17:42 09/20/19 25 10/10/2024 ADVAN REGINA LIPID PNL W/INF LAMMA TION, CARDI O IQ(R) LDL medium 230 nmol/ L <215 high Relat tova Risk: Optim al <215; Moder ate 215-3 01; High >301. Male Refer ence Range : 167 to 485 nmol/ L; Femal e Refer ence Range : 121 to 397 nmol/ L. Not Available [facility] - Manual Order Only [address], [place], [address], 10/10/2024 15:17:42 09/20/1910/10/2024 ADVAN REGINA LIPID PNL W/INF LAMMA TION, CARDI O IQ(R) HDL large 5874 nmol/ L >6729 low Relat tova Risk: Optim al >6729 ; Moder ate 6729- 5353; High <5353 . Male Refer ence Range : 4334 to 385[address] nmol/ L; Femal e Refer ence Range : 5038 to 20799 nmol/ L. Not Available [facility] - Manual Order Only [address], [place], [address], 10/10/2024 15:17:42 09/20/19 25 10/10/2024 ADVAN REGINA LIPID PNL W/INF LAMMA TION, CARDI O IQ(R) LDL pattern B patte rn A abnormal Relat tova Risk: Optim al Patte rn A; High Patte rn B. Refer ence Range : Patte rn A. Not Available [facility] - Manual Order Only [address], [place], [address], 10/10/2024 15:17:42 09/20/19 25 10/10/2024 ADVAN REGINA LIPID PNL W/INF LAMMA TION, CARDI O IQ(R) LDL peak size 213.2 angst rom >222.9 low This test was devel caleb and its ely tical perfo rmanc e yeimi cteri stics have been deter mined by [facility] hector arredondo of Misha gonzalez at [facility]. It has not been clear ed or appro mame by the U.S. Food and Drug Admin istra tion. This assay has been valid ated pursu ant to the CLIA regul ation s and is used for clini todd purpo ses. Relat tova Risk: Optim al >222. 9; Moder ate 222.9 -217. 4; High <217. 4. Male and Femal e Refer ence Range : 216 to 234.3 Angst rom. Adult cardi ovasc ular event risk categ ory cut point s (opti mal, moder ate, high) are based on an adult U.S. refer ence popul ation plus two large cohor t study popul ation s. Assoc iatio n betwe en lipop rotei n subfr actio ns and cardi ovasc ular event s is based on Chapis garza et al. ATVB. 2009; 29:19 75. For addit ional infor alex vega refer to http: //[facility] babatunde raphaelQue stDia gnost ics.c om/fa q/FAQ 134 (This link is being provi ded for infor robi nal/e ducat ional purpo ses only. ) Not Available [facility] - Manual Order Only [address], [place], [address], 10/10/2024 15:17:42 09/20/19 25 10/10/2024 ADVAN REGINA LIPID PNL W/INF LAMMA TION, CARDI O IQ(R) apolipoprote in B 81 mg/dL <90 Refer ence Range <90 Risk Categ ory: Optim al <90 Moder ate 90-12 9 High > or = 130 A gareth able treat ment targe t may be <80 mg/dL or lower depzo roberson on the risk categ ory of the patie nt inclu ding patie nts on lipid lower ing thera pies, patie nts with ASCVD , diabe mel with >1 risk facto rs, Stage 3 or great er CKD with album inuri a, or heter ozygo us famil ial hyper chris stero lemia . ApoB relat tova risk categ ory cut point s are based on AACE/ RUBÉN and ACC/A AMBRIZ recom menda tions (Leisa coyne SM, et al. 2019. doi:1 0.101 6/j.j acc.2 018.1 1.002 ; Analy duncan Y, et al. 2020. doi:1 0.415 8/CS- 2019- 0490) . Not Available [facility] Manual Order Only [address], [place], [address], 10/10/2024 15:17:42 09/20/1910/10/2024 ADVAN REGINA LIPID PNL W/INF LAMMA TION, CARDI O IQ(R) lipoprotein (A) 51 nmol/ L <75 Risk: Optim al <75 nmol/ L; Moder ate 75-12 5 nmol/ L; High >125 nmol/ L. Cardi ovasc ular event risk categ ory cut point s (opti mal, moder ate, high) are based on Loan Ospina. [facility] 2017; 69:69 2-711 . Not Available [facility] - Manual Order Only [address], [place], [address], 10/10/2024 15:17:42 09/20/19 25 10/10/2024 ADVAN REGINA LIPID PNL W/INF LAMMA TION, CARDI O IQ(R) hs CRP 17.8 mg/L <1.0 high Refer ence Range : Optim al <1.0 mg/L, accor ding to Isaura GORDILLO et al. Endoc r Pract .2017 ;23(S uppl 2):1- 87. The AHA/C DC Guide lines recom mend hs-CR P range s for ident ifyin g Relat tova Cardi ovasc ular Risk in patie nts ages >17 years : <1.0 mg/L Lower Relat tova Cardi ovasc ular Risk; 1.0-3 .0 mg/L [place] Relat tova Cardi ovasc ular Risk; 3.1-1 0.0 mg/L Highe r Relat tova Cardi ovasc ular Risk. If resul t is betwe en 3.1 and 10.0 mg/L, consi harley retes ting in 1-2 weeks to exclu de a benig n trans ient eleva tion secon tima to infec tion or infla mmati on from the basel ine CRP value . Persi stent eleva tions of >10.0 mg/L upon retes ting may be assoc iated with infec tion and infla mmati on. The AHA/C DC recom menda tions are based on Pears on TA, Mensa h [place], Nery randhawa RW, et al. Marke rs of infla mmati on and cardi ovasc ular disea se: appli catio n to clini todd and publi c healt h pract ice: A state ment for healt hcare profe ssion als from the Cente rs for Disea se Contr ol and Preve ntion and the Ameri can Heart Assoc iatio n. Circu latio n 2003; 107(3 ): 499-5 11. For ages >17 Years : hs-CR P mg/L Risk Accor ding to AHA/C DC Guide lines <1.0 Lower relat tova cardi ovasc ular risk. 1.0-3 .0 [place] relat tova cardi ovasc ular risk. 3.1-1 0.0 Highe r relat tova cardi ovasc ular risk. Consi harley retes ting in 1 to 2 weeks to exclu de a benig n trans ient eleva tion in the basel ine CRP value secon tima to infec tion or infla mmati on. >10.0 Persi stent eleva tion, upon retes ting, may be assoc iated with infec tion and infla mmati on. Pears on TA, Mensa h [place], Nery randhawa RW, et al. Pettigrewe rs of infla mmati on and cardi ovasc ular disea se: appli catio n to clini todd and publi c healt h pract ice: A state ment for healt hcare profe ssion als from the [facility] rs for Disea se Contr ol and Preve ntion and the Ameri can Heart Assoc iatio n. Circu lauren n 2003; 107(3 ): 499-5 11. Not Available [facility] - Manual Order Only [address] [facility] [address], [place], [address], 10/10/2024 15:17:42 09/20/19 25 10/10/2024 ADVAN REGINA LIPID PNL W/INF LAMMA TION, CARDI O IQ(R) LP pla2 activity 83 nmol/ min/m L <124 Relat tova Risk: Optim al <=123 nmol/ min/m L; High >123 nmol/ min/m L. This test was devel oped and its ely tical perfo rmanc e yeimi cteri stics have been deter mined by [facility]. It has not been clear ed or appro mame by the FDA. This assay has been valid ated pursu ant to the CLIA regul ation s and is used for clini todd purpo ses. See Note 1 Note 1 This test was devel oped and its ely tical perfo rmanc e yeimi cteri stics have been deter mined by [facility]. It has not been clear ed or appro mame by the FDA. This assay has been valid ated pursu ant to the CLIA regul ation s and is used for clini todd purpo ses. Not Available [facility] - Manual Order Only [address], [place], [address], 10/10/2024 15:17:42 Result Notes None recorded. Problems Name Problem SNOMED Code Status Onset Date Resolution Date Notes Provider Name and Address Organization Details Recorded Time Type 2 diabetes mellitus 72647177 Active 10/2024 I 5, Cpep 2.08, IR 26, 08/2024 A1C 6.8% Cece Marques PA-C [address], [place], [address], [place] [facility] 15:21:51 Female infertil ity 9889934 Active 2024 Cece Marques PA-C [address], [place], [address], [place] [facility] 15:38:24 Severe obesity 82907095990 104 Active 10/2024 rT3 26, HDL 43, LDL pattern B, ApoB 81, lp(a) 51, hs CRP 17.8 08/2024 TSH 3.40 Cece Marques PA-C [address], [place], [address], [place] [facility] 15:24:16 Vitamin D deficien cy 83452728 Active 08/2024 Vit D 29, Cece Marques PA-C [address], [place], [address], [place] [facility] 15:39:55 Clostrid ium difficil e diarrhea 61087546606 02 Completed 202409/05/2024 Cece Marques PA-C [address], [place], [address], [place] [facility] 5 15:43:29 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 Procedures Surgical History Date Name Laterality Status Provider Name and Address Organization Details Recorded Time Colonoscopy completed Alpesh Termini [facility] 09/05/2024 15:10:07 Gallbladder Surgery completed Alpesh Termini [facility] [employer] [facility] 09/05/2024 15:10:07 Imaging Results None recorded. Procedure Notes None recorded. Medical Equipment None Reported. Allergies No known drug allergies Medications Name Sig Start Date Stop Date Status Note LastModified by Organization Details LastModified Time medroxyproge sterone 10 mg tablet TAKE 1 TABLET BY MOUTH EVERY DAY active Not Available Not Available No t Available estradiol 0.1 mg/24 hr semiweekly transdermal patch APPLY 1 PATCH TWICE WEEKLY FOR 30 DAYS active Not Available Not Available No t Available estradiol 2 mg tablet TAKE 1 TABLET BY MOUTH EVERY DAY active Not Available Not Available No t Available metformin ER 500 mg tablet,exten ded release 24 hr PLEASE SEE ATTACHED FOR DETAILED DIRECTIONS active Not Available Not Available N ot Available chlorhexidin e gluconate 0.12 % mouthwash RINSE 15 ML 2 TIMES A DAY *DO NOT SWALLOW* active Not Available Not Available No t Available Vitals Date Recorded Body height Heart rate Oxygen saturation Oxygen saturation in Arterial blood by Pulse oximetry Body mass index (BMI) Body weight Systolic blood pressure Diastolic blood pressure Provider Name and Address Organization Details Last Updated DateTime 5 160.02 cm 92 /min 100 % 100 % 38.9 kg/m2 11660.1 8 g 119 mm[Hg] 73 mm[Hg] Alpesh Termini [facility] 5 15:12:10 Date Recorded Body height Body mass index (BMI) Body weight Provider Name and Address Organization Details Last Updated DateTime 09/12/2024 160.02 cm 38.5 kg/m2 [address]6728.[address] [facility] 09/12/2024 10:05:22 Date Recorded Body height Body mass index (BMI) Body weight Provider Name and Address Organization Details Last Updated DateTime 10/12/2024 160.02 cm 38.5 kg/m2 64895.[address] [facility] 10/12/2024 14:34:43 Date Recorded Body height Heart rate Oxygen saturation Oxygen saturation in Arterial blood by Pulse oximetry Body mass index (BMI) Body weight Systolic blood pressure Diastolic blood pressure Provider Name and Address Organization Details Last Updated DateTime 160.02 cm 80 /min 99 % 99 % 38.3 kg/m2 11177 g 122 mm[Hg] 67 mm[Hg] Alpesh Ramirez [facility] 14:17:15 Social History Question Answer Notes LastModified by Editorially Details LastModified Time Tobacco Smoking Status Never Smoker Cece Marques PA-C [address] [facility] [address], [place], [address], [place] [facility] [employer] [facility] 09/05/2024 15:47:00 What Type Of Diet Are You Following? REGULAR Information not available 09/05/2024 How Many Times Per Week Do You Exercise? 1-2 Times Per Week [email or web address] Information not available 09/05/2024 Have There Been Any Changes To Your Family Or Social Situation? No Information no t available 09/05/2024 What Is Your Relationship Status? Information not available 09/05/2024 Do You Have Any Dietary Restrictions? No [email or web address] Information not available 09/05/2024 Do You Have Any Future Plans To Get ? Yes, I Want To Become [email or web address] Information not available 09/05/2024 Sex: Unknown Functional Status Question Answer Note LastModified by Editorially Details LastModified Time How many times per week do you consume alcohol? Less than 1 time per week [email or web address] Information not available 09/05/2024 Do you use any illicit or recreational drugs? No [email or web address] Information not available 09/05/2024 What is your level of alcohol consumption? Occasional [email or web address] Information not available 09/05/2024 What is your exercise level? Occasional Information not available 09/05/2024 Mental Status Question Answer Note LastModified by Organization D etails LastModified Time Do you feel stressed (tense, restless, nervous, or anxious, or unable to sleep at night)? [id number] Information not available 09/05/2024 Family History Relationship Description Onset Age of this Age Resolved Age Notes LastModified by Organization Details LastModified Time Maternal Grandmother Diabetes mellitus [email or web address] Not available 09/05 15:41:33 Maternal Grandfather Diabetes mellitus Not available 09/05 15:41:33 Father Diabetes mellitus [email or web address] Not available 09/05 15:41:43 Mother Diabetes mellitus [id number] Not available 09/05 15:41:45 Medical History No medical history recorded. Gynecological HistoryNo gynecological history recorded. Obstetrics History GPAL:G 0 P 0 0 0 0 Past Encounters Encounter ID Performer Location Encounter Start Date Encounter Closed Date Diagnosis/Indication Diagnosis SNOMED-CT Code Diagnosis ICD10 Code Diagnosis Note [id number] Cece Marques PA-C [place] [address] [place] [address] 09/05/2024 14:54:55 09/05/2024 16:48:29 Severe obesity [id number] 9104 E66.812 E66.01 Z68.38 Andrew Restrepo has a history of weight fluctuatio ns and challenges with weight management , including a history of increased weight gain after gallbladde r surgery and C. diff infections . Her current weight is around 215 lbs, with a desired weight of 150 lbs. She reports being more active outside of winter, engaging in yard work and walking her dog. She is currently following a high-prote in, low-sugar diet and has been trying to eat three meals a day, having previously eaten only one meal a day.Plan- Basic 1 week plan given as a guide which includes balanced meals with protein, complex carbs and fat. Focus on reduction in refined carb intake and increase water for adequate hydration. - Document intake in a 7 day food record and bring to next appointmen t.- Explained In[employer], reviewed body compositio n at present and goals.- Work with dieticians to understand ing macro's, learn how to read a nutrition label, and mindfully balance meals.-Lm gnostic Testing: Labs ordered as below. Type 2 lm patsy mellitus [id number] E11.9 They are asymptomat ic and not on pharmacoth erapy. They have no personal history of diabetes. She has significan t family history for T2DM in her maternal grandparen ts and both parents. She has intermitte ntly been on Metformin in the past for prediabete s and has tolerated this

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
--- OUTSIDE RECORDS SUMMARY | 2024-10-26 13:29 | XMS_ITS | Continuity of Care Document ---
Author Organization [place] [facility], [facility] Address [address] [place] [address] Care Team Providers Care Principal Associate Name Role Phone CRUZ HERMOSILLO Primary Care Provider LIZBETH MARQUES Physician Wireless Internet Installer Unavailable [facility] [place] Public Relations Counselor/Superintendent Fish Hatchery Unavaila ble Assessment Encounter Date Assessment Date Assessment LastModified by Organization Details LastModified Time 10/24/2024 10/24/2024 Chart prep time: 9:25-9:27 Face to face time with patient: 2:22- 2:43 Documentation time: 2:43-2:50 Total time spent on encounter: 30 E+M based on time _30__ min. [email or web address] Not available 10/24/2024 14:50:08 Plan of Treatment Reminders Order Date Submit Date Provider Last Modified By Organization Details Last Modified Time Details Appointments 1st [facility] 30 2024 09:15A M Ch[address] Not available Not available Not available FOLLOW UP MEDICAL 2024 10:30A M Lizbeth Marques PA-C Not available Not available Not available Lab None recorded . Referral None recorded . Procedures None recorded . Surgeries None recorded . Imaging None recorded . Medication Orders None recorded . Patient TargetsNo targets recorded. Patient InstructionsNo instructions recorded. Reason for Referral None Reported. Problems Name Problem SNOMED Code Status Onset Date Resolution Date Notes Provider Name and Address Organization Details Recorded Time Type 2 diabetes mellitus 51990210 Active 10/2024 I 5, Cpep 2.08, IR 26, 08/2024 A1C 6.8% Lizbeth Marques PA-C [address], [place], [address], [place] [facility] 15:21:51 Female inferj[place] verdni 7029656 Active 2024 Lizbeth Marques PA-C [address], [place], [address], [place] [facility] 15:38:24 Severe obesity 08957837761 104 Active 10/2024 rT3 26, HDL 43, LDL pattern B, ApoB 81, lp(a) 51, hs CRP 17.8 08/2024 TSH 3.40 Lizbeth Marques PA-C [address], [place], [address], [place] [facility] 15:24:16 Vitamin D deficien cy 63282074 Active 08/2024 Vit D 29, Lizbeth Marques PA-C [address], [place], [address], [place] [facility] 15:39:55 Clostrid ium difficil e diarrhea [id number] 02 Completed 202409/05/2024 Lizbeth Marques PA-C [address], [place], [address], [place] [facility] 15:43:29 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 Procedures Surgical [...] Details Last Updated DateTime 5 160.02 cm 80 /min 99 % 99 % 38.3 kg/m2 08830 g 122 mm[Hg] 67 mm[Hg] [employer] [facility] 5 14:17:15 Social History Question Answer Notes LastModified by Organizat ion Details LastModified Time Tobacco Smoking Status Never Smoker Lizbeth Marques PA-C [address] [place] [address] [address], [place], [address], [place] [facility] 09/05/2024 15:47:00 What Type Of Diet Are You Following? REGULAR [email or web address] Information not available 09/05/2024 How Many Times Per Week Do You Exercise? 1-2 Times Per Week Information not available 09/05/2024 Have There Been Any Changes To Your Family Or Social Situation? No [email or web address] Information no t available 09/05/2024 What Is Your Relationship Status? [email or web address] Information not available 09/05/2024 Do You Have Any Dietary Restrictions? No [email or web address] Information not available 09/05/2024 Do You Have Any Future Plans To Get ? Yes, I Want To Become Information not available 09/05/2024 Sex: Unknown Functional Status Question Answer Note LastModified by Organizat ion Details LastModified Time How many times per week do you consume alcohol? Less than 1 time per week [email or web address] Information not available 09/05/2024 Do you use any illicit or recreational drugs? No Information not available 09/05/2024 What is your level of alcohol consumption? Occasional [email or web address] Information not available 09/05/2024 What is your exercise level? Occasional [email or web address] Information not available 09/05/2024 Mental Status Question Answer Note LastModified by Organization D etails LastModified Time Do you feel stressed (tense, restless, nervous, or anxious, or unable to sleep at night)? [id number] [email or web address] Information not available 09/05/2024 Family History Relationship Description Onset Age of this Age Resolved Age Notes LastModified by Organization Details LastModified Time Maternal Grandmother Diabetes mellitus [email or web address] Not available 09/05 15:41:33 Maternal Grandfather Diabetes mellitus [email or web address] Not available 09/05 15:41:33 Father Diabetes mellitus [email or web address] Not available 09/05 15:41:43 Mother Diabetes mellitus [email or web address] Not available 09/05 15:41:45 Medical History No medical history recorded. Gynecological HistoryNo gynecological history recorded. Obstetrics History GPAL:G 0 P 0 0 0 0 Past Encounters Encounter ID Performer Location Encounter Start Date Encounter Closed Date Diagnosis/Indication Diagnosis SNOMED-CT Code Diagnosis ICD10 Code Diagnosis Note [id number] Lizbeth Marques PA-C [facility] [address] [place] [address] 10/24/2024 14:15:02 10/24/2024 14:45:15 Severe obesity 8482148013 9104 E66.812 E66.01 Z68.38 Andrew Restrepo has [...] and moderate CHO intake. Type 2 lm patsy mellitus 99778651 E11.9 They are asymptomat ic and not [...] may consider intermitte nt fasting. Hypoalphal ipoproteine [facility] 264655328 E78.6 She is asymptomat ic and not on pharmacoth erapy. No significan t personal or family history of heart disease.Re sults: 09/2023 TC 153, HDL 43, TG 146, LDL 85, nonHDL 110, LDL pattern B, ApoB 81, lp(a) 51, hsCRP 17.8Plan- Focus on heart healthy diet, minimizing intake of hyper-proc essed foods and increasing intake of [id number].- Reviewed impact of exercise and genetics on HDL levels.- Will continue to monitor cholestero l panel. Goals Section Goal Description Progress Status Start Date LastModified by Organization Details LastModified Time Exercise Regularly Follows a regular exercise regimen or instructed exercise plan as per care team recommendatio n(s) no-change active 2024 Chung Camargo Information not available 10/12/2024 21:34:16 Weight Loss Decreases body weight as per care team recommendatio n(s) no-change active 2024 Chung Camargo Information not available 10/12/2024 21:34:31 Medication Regimen Follows medication regimen as per care team recommendatio n(s) improving active 2024 Chung Camargo Information not available 10/12/2024 21:34:40 Adequate Sleep Achieves adequate, well-rested sleep with minimal disruption worsening active 2024 Chung Camargo Information not available 10/12/2024 21:34:56 Diet Adherence 09/12/24:24 hour recall:B (5:306a): 3 egg whites or HB eggs with 3 breakfast sausage and clemintine / banana s (9a): 1/4c pecans with banana / clemintine L (12-1): lesser evil cheese puffs / scotch egg / banana / turkey jerky / cottage cheese / macedonian yogurt D (5-5:30p): grilled chicken with sweet potato and asparagus / grilled prk with potato and carrots / shrimp salad / meatball casserole with salad / baked chicken with sweet potato S: magnesium tea Beverages:- 1-3 16 oz bottles of water per day - diet orange juice occasionally - hot cocoa occasionally worsening active 2024 Chung Camargo Information not available 10/12/2024 21:35:12 Stress Management Reports effective management of stress worsening active 2024 Chung Camargo Information not available 10/12/2024 21:35:25 Patient demonstrat [...] in the past. improving active 2024 Chung [email or web address] Information not available 10/12/2024 21:35:42 Health Concerns Section Related Observation LastModified by Organization Brittny rios LastModified Time None Recorded Concern Status LastModified by Organization Details LastModified Time Type 2 diabetes mellitus Active Lizbeth Marques Not Available 09/06/2024 01:02 :12 Severe obesity Active Lizbeth Marques Not Available 01:01:01 Payers Encounter Date Sequence Insurance Name Policy Number Policy Alva Covered Member ID Alva Member ID Guarantor Name 10/24/2024 1 [place] [id number] Andrew Restrepo [id number] Andrew Restrepo Notes Date Note Type Note Provider Name and Address Organization Details Recorded Time 10/24/2024 text/html 44 yro patient presents for [...] increased to 180 lbs. She moved to [place], where her weight decreased to 160 lbs, but upon returning in 2014, her weight gradually increased to 180 lbs. 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 Female Infertility- Working with [facility] program. Referred for weight loss in the [...] personal or family history of heart disease. Lizbeth Marques PA-C [address], [place], [address], [place] [facility] 10/24/2024 14:51:27 OBGyn Episode No OBEpisode recorded.
== END 2024-10-26 13:34 | disposition home or self-care (01) ==
LOC: HO.HMCC 12:52
PROVIDERS: PCP Nurse Practitioner Family; Visit Provider Nurse Practitioner Family
DX: Z00.00 Encounter for general adult medical examination without abnormal findings (principal)

== ENCOUNTER → 2024-10-26 12:51 | Outpatient (BNVA) | payer BC, SELFPAY | PROVIDERS: PCP Nurse Practitioner Family; Visit Provider Nurse Practitioner Family | DX: Z00.00 Encounter for general adult medical examination without abnormal findings (principal); E11.9 Type 2 diabetes mellitus without complications; E66.9 Obesity, unspecified; Z68.38 Body mass index [BMI] 38.0-38.9, adult | CPT/HCPCS: 96127 ==

== ENCOUNTER 2024-12-05 07:29 | Outpatient (AMB) | payer BC, SELFPAY ==
--- NOTE | 2024-12-05 07:30 | MHC.OFFVIS ---
Vital Signs 12/05/24 07:31 Height 5 ft 3 in Weight 215 lb BMI 38.1 BP 129/70 Blood Pressure Location Lt brachial Position Sitting Pulse 76 Pulse Oximetry (%) 98 Oxygen Delivery Method Room Air Intake Visit Reasons: diarrhea Intake Note: Patient new consult for diarrhea/Keila patient priti was 11/12/21. Patient cc: diarrhea on and off. Denies any other GI issues. Steam Press Operator Required: No Accompanied by: Self / Same As Patient Allergies No Known Allergies (No Known Allergies*) Allergy (Verified 10/26/24 12:56) Medication List - Last Reconciled 12/05/24 by Inge Owens MD estradiol 2 mg PO DAILY medroxyprogesterone 10 mg PO DAILY omeprazole 40 mg PO DAILY HPI HPI diarrhea: Details: GI clinic visit for this 44 YF for follow-up of chronic diarrhea. Patient is previously followed by NITHIN Chen and was last seen in November, TODAY'S VISIT: Patient cc: diarrhea on and off. Denies any other GI issues. Pt reports she had C Diff for almost a year after she took antibiotics for oral surgery. Everything she ate was going straight through her. Seen by bariatric surgery who suggested a new probiotic (Pendulum twice a day) which has been helping Usually has 2-4 soft to loose BMs a day without blood or mucous. Dairy causes diarrhea and does not eat a lot of dairy. Takes a high fibre and high protein diet. Trying to loose wt and lost 5 lbs I am a natural person She is trying to conceive. Intermittent abd cramps after she took Crystal Light Patient complains of occasional heartburn and denies dysphagia, nausea, vomiting, change in appetite. Takes Omeprazole prn - usually once a week Denies recent change in bowel habits, constipation, black stools or rectal bleeding. Patient denies major cardiac or pulmonary problems, loud snoring or sleep apnea Denies problems with anesthesia in the past. Denies being on chronic anticoagulation. Patient denies known family history of colon polyps, colon cancer or other GI malignancies. LABS IN [place] : Reviewed IMAGING STUDIES: 09/2020 ABD US SHOWED: 1. Mild increase in liver echogenicity which is typically reflective of hepatic steatosis. 2. Status post cholecystectomy. No dilatation of intrahepatic bile ducts. ENDOSCOPIC STUDIES: 10/2021 EGD AND COLONOSCOPY WERE PERFORMED BY DR. LIU: Endoscopy Findings: erosive esophagitis hiatal hernia, small gastritis possible reduced gastric motility Colonoscopy Findings: polyp internal hemorrhoids diverticular disease Plan: Await Pathology results Repeat Colonoscopy in 5 years if adenomatous polyp, 10 yrs if hyperplastic or earlier if clinically indicated High fiber diet leaflet avoid straining at stool, epsom salts and sitz bath, anusol supps or cream Check nsaid hx and if using PPI, if not using PPI then can try omeprazole 40 mg BID for 3 months and titrate down based on response BIOPSIES SHOWED: A. Duodenum, biopsy: Duodenal mucosa with preserved villi and no specific change. B. Stomach, biopsy: Gastric antral and body mucosa with focal minimal chronic inactive gastritis; negative for H pylori. C. Esophagogastric junction, biopsy: Squamous mucosa with hyperplasia and rare intraepithelial neutrophils and eosinophils (1 per high-power field) compatible with esophagitis; no columnar mucosa present. D. Terminal ileum, biopsy: Ileal mucosa with no specific change. E. Colon, random, biopsy: Colonic mucosa with lymphoid aggregates and focal lamina propria foamy macrophages, otherwise no specific change; no evidence microscopic colitis. F. Colon, rectal polyp: Hyperplastic polyp PAST GI HISTORY BY REVIEW OF MEDICAL RECORDS: 11/27 PATIENT WAS SEEN BY NITHIN CHEN: A 41 y/o female history of recurrent C diff-continued with chronic diarrhea. She did begin rifaximin-in which she reports-symptoms have improved. Stools are not nearly as loose as they were and she is going about 3 times a day. She is hopeful as she continues her a 2 week course her symptoms will improve from there. [facility] Medical History C. difficile diarrhea Fatty liver Surgical History History of hysteroscopy Hx of esophagogastroduodenoscopy Hx of colonoscopy History of carpal tunnel release Hx of oral surgery Hx of cholecystectomy Family History Father Hx of diabetes mellitus Mother Hx of diabetes mellitus Maternal Aunt History of breast cancer Cervical cancer Mother Ovarian cancer Uterine cancer Social History Household Members Other:: Recently Housing: House Alcohol intake: current Alcohol intake frequency: a few times a month Patient Tobacco Use Status: Never used Tobacco e-Cigarette/Vaping Use: Never Used Second Hand Smoke Exposure: No Current occupational status: employed Current occupation: [employer] Current occupational exposures/hazards: No Sexual orientation: Lesbian/Gregg/Homosexual Cognitive needs: No Hearing needs: No Vision needs: Yes Review of Systems Const Denies fever(s), Denies headache(s) and Reports weight loss (of 5 lbs) Eyes Denies eye discharge and Denies irritation ENT Reports Normal hearing present, Denies dysphagia, Denies dizziness and Denies headache(s) Card Denies chest pain, Denies leg edema and Denies dyspnea on exertion Resp Denies cough, Denies dyspnea on exertion and Denies wheezing GI Reports abdominal pain (sometimes), Reports bloating (intermittent), Denies change in bowel habits, Denies dysphagia, Reports heartburn (sometimes) and Reports diarrhea (intermittent) Denies difficulty voiding and Denies dysuria Musc Denies back pain and Denies arthralgias Skin/Breast Denies pruritus, Denies rash and Denies jaundice Neuro Reports Normal hearing present, Denies Abnormal speech present, Denies dizziness, Denies headache(s) and Denies seizure-like activity Psych Denies anxiety, Denies depression and Denies panic attacks Endo Denies cold intolerance, Denies flushing and Denies heat intolerance Tim/Lymph Denies easy bleeding and Denies easy bruising Aller/Immun Denies wheezing Physical Exam Vital Signs: Last Vital Signs Pulse 76 12/05/24 07:31 BP 129/70 12/05/24 07:31 Pulse Ox 98 12/05/24 07:31 Oxygen Delivery Method Room Air 12/05/24 07:31 BMI result Body Mass Index 38.1 Const General: healthy appearing and no acute distress Nutritional Appearance: obese Orientation/consciousness: patient oriented x3 Limitations: no limitations HEENT Head: Yes normal to inspection Ears: hearing grossly normal bilaterally Eyes Sclerae: sclerae normal Pupils: Equal, round and reactive pupils present Neck Neck: Yes normal visual inspection Chest Chest palpation & inspection: normal inspection of the chest Resp Effort & Inspection: normal respiratory effort Auscultation: clear to auscultation bilaterally Cardio Palpation: normal PMI Rate: regular rate Rhythm: regular rhythm Heart sounds: S1 normal heart sound present, S2 normal heart sound present and no murmurs GI Inspection: Yes obesity Palpation (GI): Soft to palpation, nontender and No hepatosplenomegaly present Auscultation: normal bowel sounds Rectal Exam - Female: deferred Skin General skin exam: no rashes or lesions noted Neuro General: patient oriented x3, gait normal and moves all extremities Cranial nerves: Yes Equal, round and reactive pupils present and Yes Normal hearing present Speech: No Abnormal speech present Psych Appearance: grossly normal Mental Status: mental status grossly normal Assessment & Plan Assessment & Plan (1) Diarrhea: Comment: Continue rifaxamin-she will call progress next week. Follow-up with progress-if stools do not improve consider budesonide- Code(s): R19.7 - Diarrhea, unspecified Category: Medical Plan 44-year-old female seen for follow-up of chronic diarrhea. 10/2021 EGD showed hiatal hernia, erosive esophagitis and gastritis. A hyperplastic polyp was removed during same day colonoscopy. Random biopsies obtained from the colon and TI were normal. Fecal calprotectin was 19 and fecal leukocytes were negative. TTG IgA was negative and CRP was elevated in the past. 12/05/24 Pt reports she had C Diff for almost a year after she took antibiotics for oral surgery. Everything she ate was going straight through her. Seen by bariatric surgery who suggested a new probiotic (Pendulum twice a day) which has been helping Usually has 2-4 soft to loose BMs a day without blood or mucous. Dairy causes diarrhea and does not eat a lot of dairy. 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 Patient was advised to check stool studies for fecal fat and pancreatic elastase - normal Follow-up in 3 months. Orders: Orders Fecal Fat Qualitative 12/05/24 R19.7 - Diarrhea, unspecified Pancreatic Elastase-1 12/05/24 R19.7 - Diarrhea, unspecified Coding Level of Care Code New Pt Level 4 (04505) Diagnoses Diarrhea R19.7 Time Spent (min) 24
--- OUTSIDE RECORDS SUMMARY | 2024-12-05 07:30 | XMS_ITS | Continuity of Care Document ---
Author Name [facility] Organization [facility] Care Team Providers Care Taxi Driver Supervisor Name Role Phone [facility] Unavailable Unavailable Problems Combined list of problems from Department of Defense and Veterans Affairs facilities. It does not include entries that were removed or entered in error. Problem Status Onset Date Problem Type Date of Resolution Comments Source Bipolar disorder Active 3 Condition Aug 24, 2014 Entered By: MANINDER VELA Comment: per patient report 08/24/14 [facility] Alcohol Abuse Active Condition [place] Nicolas Quintanilla [facility] Alcohol Dependence * (ICD-9-CM 303.90/303.91) Active Condition [facility] Foot pain Active Condition Jan 10, 2015 Entered By: MANINDER VELA Comment: Left CORAL Araceli [facility] Herpes zoster Active Condition [place] Nicolas Quintanilla [facility] History [facility] deployment Active Condition [facility] Irregular menstrual cycle Active Condition [place] Araceli [facility] Low back [facility] Active Condition [place] Nicolas Quintanilla [facility] Otitis externa Active Condition [place] Araceli [facility] Sciatica Active Condition [place] Araceli [facility] visit for: exam following treatment Inactive Condition [facility] SUPERFICIAL INJURY - ABRASION OF LEFT CORNEA Inactive Condition [facility] Vaccines Prophylactic Need Inactive Condition [facility] visit for: services physical Inactive Condition [facility] Diagnosis: ICD-10-CM Z71.0 Prsn encntr hlth serv to consult on behalf of another person Active Diagnosis [facility] (286AM) Diagnosis: ICD-10-CM Z46.0 Encounter for fit/adjst of spectacles and contact lenses Active Diagnosis [place] [facility] Diagnosis: ICD-10-CM H04.123 Dry eye syndrome of bilateral lacrimal glands Active Diagnosis [facility] Medications Combined list of outpatient [...] T ORAL ACTIVE HALLEY SOTO Naomi 2017 [facility] Immunizations Combined list of available immunizations from the Department of Defense and Veterans Affairs facilities. 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 Comments Source COVID-19 (MODERNA), MRNA, LNP-S, PF, 100 MCG OR 50 MCG DOSE 3 2021 207 complet ed MOD; [id number]; IELD INFLUENZA, INJECTABLE, QUADRIVALENT, PRESERVATIVE FREE 2020 150 complet ed [facility] COVID-19 (PFIZER), MRNA, LNP-S, PF, 30 MCG/0.3 ML DOSE 2 2020 208 complet ed PFR; [id number]; 1 [facility] COVID-19 (PFIZER), MRNA, LNP-S, PF, 30 MCG/0.3 ML DOSE 1 2020 208 complet ed PFR; [id number]; 1 [facility] DTAP, UNSPECIFIED FORMULATION 2013 107 complet ed [facility] TETANUS TOXOID, UNSPECIFIED FORMULATION 2008 112 complet ed [place] [facility] TETANUS-DIPTH ERIA-PERTUSIS (TDAP) (HISTORICAL) 2008 139 complet ed [place] [facility] Encounters Combined list of: 1) Encounters from Department of Veterans Affairs facilities going backup to the last 18 months, not all [place] inpatient encounters are included; 2) Encounters from the Department of Defense facilities going backup to 280 months. Location Location Details Encounter Type Encounter Number Reason For Visit Attending Provider ADM Date DC Date Status Disposition Source [facility] OUT[facility] [id number] 06/14 Released w/o Limitations [facility] [id number] 02/15 Released w/[facility] Limitations [facility] OUT[facility] [id number] 02/22 Released w/o Limitations [facility] OUT[facility] [id number] 02/23 Released w/o Limitations [facility] [id number] Diagnos is: ICD-10- CM Z71.0 Prsn encntr hlth serv to consult on behalf of another person YEHUDA LYNN SE 07/02 [facility] [id number] Diagnos is: ICD-10- CM Z71.0 Prsn encntr hlth serv to consult on behalf of another person YEHUDA LYNN 10/12 [facility] Outpatient [facility]counter [id number] 12/14 [facility] En[facility] [id number] 02/11 [facility]NAGEMENT [id number] Diagnos is: ICD-10- CM Z71.0 Prsn encntr hlth serv to consult on behalf of another person YEHUDA LYNN SE 02/23 [facility] En[facility] [id number] 03/23 [facility]NAG[facility] [id number] Diagnos is: ICD-10- CM Z71.0 Prsn encntr hlth serv to consult on behalf of another person MARCY LYNNI SE 07/04 [facility] COMPRE OPH EXAM EST PT 1/> [id number] Diagnos is: ICD-10- CM H04.123 Dry eye syndrom e of bilater al lacrima l glands SURDOCHARITY,K ATHRYN A 07/28 [facility] FIT SPECTACLES MONOFOCAL [id number] Diagnos is: ICD-10- CM Z46.0 [facility] er for fit/adj st of spectac les and contact lenses SURVEL,K ATHRYN A 07/28 [place] [facility] [place] (631GE) [facility] BHV IVNTJ FAM EA ADDL [id number] Diagnos is: ICD-10- CM Z71.0 Prsn encntr [facility] serv to consult on behalf of another person YEHUDA LYNN SE 10/25 [facility] (631GE) Social History Combined list of available smoking, tobacco, and other social history from Department of Defense and Veterans Affairs facilities. Social History Type Response Date Comment Sourc e Tobacco smoking status NHIS QUIT TOBACCO >7 YEARS AGO 07/31/2014 [place] RANGEL Leena History of tobacco use LIFETIME NON-TOBACCO USER 09/28/2008 [place] [facility] [place] [facility] This section is an empty social history section. DoD
[2024-12-05 07:31] VITALS: BP 129/70; PULSE 76; O2SAT 98; BMI 38.1
== END 2024-12-05 08:18 | disposition home or self-care (01) ==
LOC: HO.HGI 07:29
PROVIDERS: PCP Nurse Practitioner Family; Visit Provider Internal Medicine Gastroenterology
DX: R19.7 Diarrhea, unspecified (principal)
CPT/HCPCS: 99499

== ENCOUNTER 2024-12-08 08:28 | Outpatient (REF) | payer BC, SELFPAY ==
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
== END 2024-12-08 08:29 | disposition home or self-care (01) ==
LOC: HO.MAMMO 08:28
PROVIDERS: PCP Nurse Practitioner Family; Visit Provider Nurse Practitioner Family
DX: Z12.31 Encounter for screening mammogram for malignant neoplasm of breast (principal)
CPT/HCPCS: 77063; 77067

== ENCOUNTER → 2024-12-08 08:30 | Outpatient (BNV) | payer BC, SELFPAY | PROVIDERS: PCP Nurse Practitioner Family; Visit Provider Internal Medicine | DX: Z12.31 Encounter for screening mammogram for malignant neoplasm of breast (principal) | CPT/HCPCS: 77063; 77067 ==

== ENCOUNTER 2024-12-26 08:42 | Outpatient (REF) | payer BC, SELFPAY ==
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
--- OUTSIDE RECORDS SUMMARY | 2024-12-26 08:50 | XMS_ITS | Data Portability ---
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 provided + discussed recipes for more variety at meals. Cece Marques PA-C [address], [place], [address], [place] - POUNDS, MEDICAL WEIGHT LOSS TRANSFO 12/05/2024 12:48:51 12/05/2024 text/html 44 yro patient presents for [...] lbs. 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 Female Infertility- Working with [facility]. Referred for weight loss in the [...] tolerated this medication well. Cece Marques PA-C [address], [place], [address], [place] - POUNDS, MEDICAL WEIGHT LOSS [facility]ANSFO 12/05/2024 11:17:05 OBGyn Episode No OBEpisode recorded.
[2024-12-26 11:10] LABS: MANUAL DIFF FLAG NO
[2024-12-26 11:27] LABS: Hematocrit 37.6 % (37.0-47.0); Hemoglobin 12.2 g/dl (12.0-16.0); Imm Gran Abs Auto 0.02 X10*3/uL (0.00-0.03); Imm Gran Pct Auto 0.2 % (0.0-0.4); Lymphocytes Absolute Auto 2.7 X10*3/uL (1.2-4.9); Mean Corpuscular HGB Conc 32.4 g/dl (31.0-35.0); Mean Corpuscular Hemoglobin 29.0 pg (27.0-33.0); Mean Corpuscular Volume 89.3 fL (80.0-98.0); NRBC Abs Auto 0.000 X10*3/uL (0.0-0.012); NRBC Pct Auto 0.0 /100WBC (0.0-0.2); Platelet Count 326 X10*3/uL (160-400); Red Blood Count 4.21 X10*6/uL (4.20-5.50); White Blood Count 9.3 X10*3/uL (4.8-10.8)
[2024-12-26 11:43] LABS: Alanine Aminotransferase 21 U/L (0-31); Albumin Level 4.0 g/dL (3.5-5.0); Alkaline Phosphatase 75 U/L (39-117); Anion Gap 12 (12-20); Aspartate Amino Transferase 16 U/L (5-31); Blood Urea Nitrogen 12 mg/dL (9-16); Calcium 8.2 mg/dL (8.4-10.2); Carbon Dioxide 25 mmol/L (22-29); Chloride 108 mmol/L (96-108); Cholesterol 148 mg/dL (<200); Estimated Glomerular Filt Rate > 60; HDL Cholesterol 41 mg/dL (>40); Potassium 3.9 mmol/L (3.3-5.1); Sodium 141 mmol/L (135-145); Total Protein 6.8 g/dL (6.5-8.0); Triglycerides 282 mg/dL (<150)
== END 2024-12-26 08:43 | disposition home or self-care (01) ==
LOC: HO.WFDLDS 08:42
PROVIDERS: Internal Medicine Gastroenterology; Visit Provider Nurse Practitioner Family
DX: Z00.00 Encounter for general adult medical examination without abnormal findings (principal); R19.7 Diarrhea, unspecified
CPT/HCPCS: 36415; 80053; 80061; 82656; 82705; 84443; 85025

== ENCOUNTER 2025-03-03 14:41 | Outpatient (AMB) | payer BC, SELFPAY ==
[2025-03-03 14:54] VITALS: BP 114/82; PULSE 80; RESP 14; O2SAT 98; BMI 37.1
--- NOTE | 2025-03-03 14:54 | A.OFFPC_ITS ---
Vital Signs 03/03/25 14:54 Height 5 ft 3 in Weight 209 lb 4 oz BMI 37.1 BP 114/82 Blood Pressure Location Lt brachial Position Sitting Respiration 14 Pulse 80 Pulse Source Pulse Oximeter Pulse Oximetry (%) 98 Oxygen Delivery Method Room Air Intake Visit Reasons: holly from [facility] Intake Note: New patient visit Client Engagement Manager Required: No Allergies No Known Allergies (No Known Allergies*) Allergy (Verified 03/06/25 07:37) Tobacco use date assessed: 03/03/25 Dental Screening Dental Screen Date: 10/26/24 HPI HPI Comments History of Present Illness Details The patient is a 45 year old female with a past medical history of impaired glucose, recurrent c diff colitis, GERD presenting to [facility]. Elevated glucose on metformin,novolog with meals. She is following with endocrinology for infertility-will be trying embryo transfers GI: [place] [facility] 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 HEENT: Denies changes in vision and hearing. RESPIRATORY: Denies SOB and cough. CV: Denies palpitations and CP GI: Denies abdominal pain, nausea, vomiting and diarrhea. : Denies dysuria and urinary frequency. MSK: Denies new myalgia and joint pain. SKIN: Denies rash and pruritus. NEUROLOGICAL: Denies headache PSYCHIATRIC: Denies recent changes in mood. PHYSICAL EXAM: GENERAL: Alert and oriented x 3. NAD EYES: EOMI. Anicteric. HENT: Moist mucous membranes. No scleral icterus. No cervical lymphadenopathy. LUNGS: Clear to auscultation bilaterally. CARDIOVASCULAR: Regular rate and rhythm. No murmur. No JVD. ABDOMEN: Soft, non-tender +bs EXTREMITIES: No edema. Non-tender. SKIN: No rashes or lesions. Warm. NEUROLOGIC: No focal neurological deficits. CN II-XII grossly intact PSYCHIATRIC: Cooperative. Appropriate mood and affect [facility] Medical History C. difficile diarrhea Fatty liver Surgical History History of hysteroscopy Hx of esophagogastroduodenoscopy Hx of colonoscopy History of carpal tunnel release Hx of oral surgery Hx of cholecystectomy Family History Father Hx of diabetes mellitus Mother Hx of diabetes mellitus Maternal Aunt History of breast cancer Cervical cancer Mother Ovarian cancer Uterine cancer Social History Household Members Other:: Recently Housing: House Alcohol intake: current Alcohol intake frequency: a few times a month Patient Tobacco Use Status: Never used Tobacco e-Cigarette/Vaping Use: Never Used Second Hand Smoke Exposure: No Current occupational status: employed Current occupation: [employer] Current occupational exposures/hazards: No Sexual orientation: Lesbian/Gregg/Homosexual Cognitive needs: No Hearing needs: No Vision needs: Yes Questionnaire Thrive Questionnaire Date Thrive assessed: 10/26/24 I am a: Patient What is your living situation today?: I have a steady place to live Within the past 12 months, did the food you bought not last and you didn't have the money to get more?: Never true Within the past 12 months, did you worry whether your food would run out before you got money to buy more?: Never true Do you have trouble paying for medicines?: No Do you have trouble getting transportation to medical appointments?: No Do you have trouble paying your heating and electricity bill?: No Do you have trouble taking care of your child, family member or friend?: No Do you have trouble with day-to-day activities such as bathing, preparing meals, shopping, managing finances, etc.?: No Are you currently unemployed and looking for a job?: No Are you interested in more education?: No Please select the resources that you would like help with: None Currently or been in a relationship where the following occur: No concerns reported THRIVE Score: 0 AUDIT C Alcohol Use Questionnaire (AUDIT-C) 1. How often do you have a drink containing alcohol?: Monthly or less 2. How many drinks containing alcohol do you have on a typical day when you are drinking?: 1 or 2 3. How often do you have six or more drinks on one occasion?: Never Total Score: 1 MONICA-7 AMB Questionnaire MONICA-7 Date MONICA - 7 assessed: 10/26/24 Source: Developed by Drs. Rubén Collins, Marilee Vilchis, Cricket Carvajal and colleagues, with an educational kathryn from [address]. Physical exam (Primary Care) Vital Signs: Last Vital Signs Pulse 80 03/03/25 14:54 Resp 14 03/03/25 14:54 BP 114/82 03/03/25 14:54 Pulse Ox 98 03/03/25 14:54 Oxygen Delivery Method Room Air 03/03/25 14:54 BMI result Body Mass Index 37.1 Tobacco/Smoking Status: Tobacco use Status Tobacco use date assessed 03/03/25 03/03/25 15:05 Patient Tobacco Use Status Never used Tobacco 03/03/25 15:05 e-Cigarette/Vaping Use Never Used 03/03/25 15:05 Thrive Assessment: Date of Thrive Assessment Date Thrive assessed 10/26/24 03/03/25 15:05 Currently or been in a relationship where the following occur: No concerns reported Coding Level of Care Code Est Pt Level 4 (41129) Diagnoses Elevated glucose R73.09 Elevated TSH R79.89 Gastroesophageal reflux disease, unspecified whether esophagitis present K21.9 Esophagitis presence: esophagitis presence not specified Female fertility problem N97.9 Assessment & Plan Assessment & Plan (1) Elevated glucose: Code(s): R73.09 - Other abnormal glucose Category: Medical (2) Elevated TSH: Code(s): R79.89 - Other specified abnormal findings of blood chemistry Category: Medical (3) Acid reflux: Code(s): K21.9 - Gastro-esophageal reflux disease without esophagitis Category: Medical Qualifiers: Esophagitis presence: esophagitis presence not specified Qualified Code(s): K21.9 - Gastro-esophageal reflux disease without esophagitis (4) Female fertility problem: Code(s): N97.9 - Female infertility, unspecified Category: Medical Plan 45 year old to establish care Past medical, surgical, social reviewed Chart updated Glucose intolerate, infertility-managed closely by endocrine/fertility center GERD-stable on prn ppi Orders: Orders Hemoglobin A1c 03/03/25 K21.9 - Gastro-esophageal reflux disease without esophagitis, R73.09 - Other abnormal glucose
--- OUTSIDE RECORDS SUMMARY | 2025-03-03 15:33 | XMS_ITS | Continuity of Care Document ---
Author Organization [facility] Address [address] [place] [address] Phone [phone] Care Team Providers Care Vineyard Worker Name Role Phone Osvaldo Egan MD Care Team Information Certified Ski Patroller + [phone] Social History Type Date Description Comments Sex Female Sex Unknown Allergies and adverse reactions Description No Known Drug Allergies Medications Active Medications SIG Qnty Indications Order ing Provider Date Novolog Wnkacyf851Iidk/ML Solution Pen-Inject Inject 2 Units Of Novolog Subcutaneously 10 Minutes Prior To Lunch 15Unspeci matty Tabor NP 01/28/20 25 Embecta Pen Needle/Nydia 2ND Gen/32G X 5/32 32G X 4 mm Misc Use To Inject Novolog Subcutaneously Once Daily Before Lunch. 50Unspeci matty Tabor NP 01/28/20 25 Metformin HCL GY094oh Tablets ER 24HR take 1 tablet mouth every day with food 90tabs Shilpa Tabor NP 01/27/20 25 BD Pen Needle/Nydia 2ND Gen/32G X 4mm32G X 4 mm Misc use to inject novolog subcutaneously once daily before lunch. 50units Shilpa Tabor NP 01/27/[address] On Skin, Replace Every 10 Days 3units E11.9 Shilpa Tabor NP 00 Estradiol0.1mg/24HR Patches Biweek Apply 1 Patch Twice Weekly For 30 Days Unknown Dexcom G7 SensorMisc Unknown Jflqqbaqq7jx Tablets Take 1 Tablet By Mouth Every Day Unknown Medroxyprogesterone Qnehbxz52pk Tablets Take 1 Tablet By Mouth Every Day Unknown Fmbckttve325xa Capsules 1 by mouth every day Unknown History Medications Novolog Iicjcah304Bwqw/ML Solution Pen-Inject inject 2 units of novolog subcutaneously 10 minutes prior to lunch 15ml Shilpa Tabor NP 01/26/2025 - 01/27/2025 Vital Signs Date Vital Result Comment 01/26/2025 9:30am BP Systolic 132 mmHg BP Diastolic 90 mmHg Heart Rate 96 /min Height 63 inches 5'3 Weight 213.25 lb BMI (Body Mass Index) 37.8 kg/m2 Results Test Acquired Date Facility Test Result H/L Range N ote Glucose Fingerstick 01/26/2025 Inhouse Glucose Fingerstick 114 Procedures Date Code Description Status 01/26/2025 05029 Glucose Monitoring Interpeta tion And Report Completed Medical Devices Description No Information Available Encounters Type Date Location Provider Dx Diagnosis Office Visit 01/26/2025 9:15a Main Office Shilpa Tabor NP E11.9 Type 2 diabetes mellitus without complications Assessments Date Code Description Provider 01/26/2025 E11.9 Type 2 diabetes mellitus wit hout complications Shilpa Tabor NP Plan of Treatment Future Appointment(s):* 03/06/2025 10:45 am - Shilpa Tabor NP at Main Office Functional Status Description No Information Available Mental Status Description No Information Available Referrals Description No Information Available
== END 2025-03-03 15:24 | disposition home or self-care (01) ==
LOC: HO.HMCFM 14:42
PROVIDERS: PCP Nurse Practitioner Family; Visit Provider Internal Medicine
DX: R73.09 Other abnormal glucose (principal); R79.89 Other specified abnormal findings of blood chemistry; K21.9 Gastro-esophageal reflux disease without esophagitis; N97.9 Female infertility, unspecified

== ENCOUNTER 2025-03-06 07:34 | Outpatient (AMB) | payer BC, SELFPAY ==
--- NOTE | 2025-03-06 07:38 | A.OFFVIS_ITS ---
Vital Signs 03/06/25 07:41 Height 5 ft Weight 206 lb BMI 40.2 BP 118/62 Blood Pressure Location Lt brachial Position Sitting Pulse 72 Pulse Oximetry (%) 99 Oxygen Delivery Method Room Air Intake Visit Reasons: diarrhea Intake Note: Patient follow up for diarrhea, lab and stool results. Patient denies any GI issues. General Agent Required: No Accompanied by: Self / Same As Patient Allergies No Known Allergies (No Known Allergies*) Allergy (Verified 03/06/25 07:37) Medication List - Last Reconciled 03/06/25 by Inge Owens MD cholecalciferol (vitamin D3) 50 mcg PO DAILY estradiol 2 mg PO DAILY estradiol 1 mg PO DAILY [estradiol 2 mg .] medroxyprogesterone 10 mg PO DAILY metformin ER (Glucophage XR) 500 mg PO DAILY multivitamin 1 tab PO DAILY [omega 3 PO] omeprazole 40 mg PO DAILY [probiotic PO] HPI HPI diarrhea: Details: GI clinic visit for this 45 YF for follow-up of chronic diarrhea. Patient is previously followed by NITHIN Chen and was last seen in November, TODAY'S VISIT: Patient here for follow up for diarrhea, lab and stool results. Denies any issues with diarrhea at present. Has a BM twice - stool are not loose Notes intermittent constipation - attributes to medication changes PAST VISITS: Pt reports she had C Diff for almost a year after she took antibiotics for oral surgery. Everything she ate was going straight through her. Seen by bariatric surgery who suggested a new probiotic (Pendulum twice a day) which has been helping Usually has 2-4 soft to loose BMs a day without blood or mucous. Dairy causes diarrhea and does not eat a lot of dairy. Takes a high fibre and high protein diet. Trying to loose wt and lost 5 lbs I am a natural person She is trying to conceive. Intermittent abd cramps after she took Crystal Light Patient complains of occasional heartburn and denies dysphagia, nausea, vomiting, change in appetite. Takes Omeprazole prn - usually once a week Denies recent change in bowel habits, constipation, black stools or rectal bleeding. Patient denies major cardiac or pulmonary problems, loud snoring or sleep apnea Denies problems with anesthesia in the past. Denies being on chronic anticoagulation. Patient denies known family history of colon polyps, colon cancer or other GI malignancies. LABS IN [facility] : Reviewed IMAGING STUDIES: 09/2020 ABD US SHOWED: 1. Mild increase in liver echogenicity which is typically reflective of hepatic steatosis. 2. Status post cholecystectomy. No dilatation of intrahepatic bile ducts. ENDOSCOPIC STUDIES: 10/2021 EGD AND COLONOSCOPY WERE PERFORMED BY DR. LIU: Endoscopy Findings: erosive esophagitis hiatal hernia, small gastritis possible reduced gastric motility Colonoscopy Findings: polyp internal hemorrhoids diverticular disease Plan: Await Pathology results Repeat Colonoscopy in 5 years if adenomatous polyp, 10 yrs if hyperplastic or earlier if clinically indicated High fiber diet leaflet avoid straining at stool, epsom salts and sitz bath, anusol supps or cream Check nsaid hx and if using PPI, if not using PPI then can try omeprazole 40 mg BID for 3 months and titrate down based on response BIOPSIES SHOWED: A. Duodenum, biopsy: Duodenal mucosa with preserved villi and no specific change. B. Stomach, biopsy: Gastric antral and body mucosa with focal minimal chronic inactive gastritis; negative for H pylori. C. Esophagogastric junction, biopsy: Squamous mucosa with hyperplasia and rare intraepithelial neutrophils and eosinophils (1 per high-power field) compatible with esophagitis; no columnar mucosa present. D. Terminal ileum, biopsy: Ileal mucosa with no specific change. E. Colon, random, biopsy: Colonic mucosa with lymphoid aggregates and focal lamina propria foamy macrophages, otherwise no specific change; no evidence microscopic colitis. F. Colon, rectal polyp: Hyperplastic polyp PAST GI HISTORY BY REVIEW OF MEDICAL RECORDS: 11/27 PATIENT WAS SEEN BY NITHIN CHEN: A 41 y/o female history of recurrent C diff-continued with chronic diarrhea. She did begin rifaximin-in which she reports-symptoms have improved. Stools are not nearly as loose as they were and she is going about 3 times a day. She is hopeful as she continues her a 2 week course her symptoms will improve from there [facility] Medical History C. difficile diarrhea Fatty liver Surgical History History of hysteroscopy Hx of esophagogastroduodenoscopy Hx of colonoscopy History of carpal tunnel release Hx of oral surgery Hx of cholecystectomy Family History Father Hx of diabetes mellitus Mother Hx of diabetes mellitus Maternal Aunt History of breast cancer Cervical cancer Mother Ovarian cancer Uterine cancer Social History Household Members Other:: Recently Housing: House Alcohol intake: current Alcohol intake frequency: a few times a month Patient Tobacco Use Status: Never used Tobacco e-Cigarette/Vaping Use: Never Used Second Hand Smoke Exposure: No Current occupational status: employed Current occupation: [employer] Current occupational exposures/hazards: No Sexual orientation: Lesbian/Gregg/Homosexual Cognitive needs: No Hearing needs: No Vision needs: Yes Review of Systems Const All systems reviewed & are unremarkable except as noted in HPI and below ENT Reports Normal hearing present Neuro Reports Normal hearing present and Denies Abnormal speech present Physical Exam Vital Signs: Last Vital Signs Pulse 72 03/06/25 07:41 BP 118/62 03/06/25 07:41 Pulse Ox 99 03/06/25 07:41 Oxygen Delivery Method Room Air 03/06/25 07:41 BMI result Body Mass Index 40.2 Const General: healthy appearing and no acute distress Nutritional Appearance: obese Orientation/consciousness: patient oriented x3 Limitations: no limitations HEENT Head: Yes normal to inspection Ears: hearing grossly normal bilaterally Eyes Sclerae: sclerae normal Pupils: Equal, round and reactive pupils present Neck Neck: Yes normal visual inspection Chest Chest palpation & inspection: normal inspection of the chest Resp Effort & Inspection: normal respiratory effort Auscultation: clear to auscultation bilaterally Cardio Palpation: normal PMI Rate: regular rate Rhythm: regular rhythm Heart sounds: S1 normal heart sound present, S2 normal heart sound present and no murmurs GI Inspection: Yes obesity Palpation (GI): Soft to palpation, nontender and No hepatosplenomegaly present Auscultation: normal bowel sounds Rectal Exam - Female: deferred Skin General skin exam: no rashes or lesions noted Neuro General: patient oriented x3, gait normal and moves all extremities Cranial nerves: Yes Equal, round and reactive pupils present and Yes Normal hearing present Speech: No Abnormal speech present Psych Appearance: grossly normal Mental Status: mental status grossly normal Assessment & Plan Assessment & Plan (1) Elevated liver enzymes: Code(s): R74.8 - Abnormal levels of other serum enzymes Category: Medical (2) Diarrhea: Comment: resolved Code(s): R19.7 - Diarrhea, unspecified Category: Medical (3) Acid reflux: Code(s): K21.9 - Gastro-esophageal reflux disease without esophagitis Category: Medical (4) Bloating: Code(s): R14.0 - Abdominal distension (gaseous) Category: Medical Plan 45-year-old female seen for follow-up of chronic diarrhea. 10/2021 EGD showed hiatal hernia, erosive esophagitis and gastritis. A hyperplastic polyp was removed during same day colonoscopy. Random biopsies obtained from the colon and TI were normal. Fecal calprotectin was 19 and fecal leukocytes were negative. TTG IgA was negative and CRP was elevated in the past. 12/05/24 Pt reports she had C Diff for almost a year after she took antibiotics for oral surgery. Everything she ate was going straight through her. Seen by bariatric surgery who suggested a new probiotic (Pendulum twice a day) which has been helping Usually has 2-4 soft to loose BMs a day without blood or mucous. Dairy causes diarrhea and does not eat a lot of dairy. 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 Patient was advised to check stool studies for fecal fat and pancreatic elastase - normal 03/06/25 stool study results reviewed. Diarrhea has resolved Pt is due for FU colonoscopy in 2031 (earlier if she has a change in bowel habits or rectal bleeding) Follow-up in 8 months Coding Level of Care Code Est Pt Level 3 (79155) Diagnoses Elevated liver enzymes R74.8 Diarrhea R19.7 Acid reflux K21.9 Bloating R14.0 Time Spent (min) 17
--- OUTSIDE RECORDS SUMMARY | 2025-03-06 07:38 | XMS_ITS | Continuity of Care Document ---
Author Organization [facility] Address [address] [place] [address] Phone [phone] Care Team Providers Care Sanitarian Aide Name Role Phone Osvaldo Egan MD Care Team Information Septic Pump Truck Driver + [phone] Social History Type Date Description Comments Sex Female Sex Unknown Allergies and adverse reactions Description No Known Drug Allergies Medications Active Medications SIG Qnty Indications Order ing Provider Date Novolog Imwfhys017Zvyf/ML Solution Pen-Inject Inject 2 Units Of Novolog Subcutaneously 10 Minutes Prior To Lunch 15Unspeci matty Tabor NP 01/28/20 25 Embecta Pen Needle/Nydia 2ND Gen/32G X 5/32 32G X 4 mm Misc Use To Inject Novolog Subcutaneously Once Daily Before Lunch. 50Unspeci matty Tabor NP 01/28/20 25 Metformin HCL HV204vh Tablets ER 24HR take 1 tablet mouth [...] 30 Days Unknown Dexcom G7 SensorMisc Unknown Luhneiyoa8rw Tablets Take 1 Tablet By Mouth Every Day Unknown Medroxyprogesterone Evcyigh52nf Tablets Take 1 Tablet By Mouth Every Day Unknown Owohzjujo913gl Capsules 1 by mouth every day Unknown History Medications Novolog Zjwifcc602Zfgt/ML Solution Pen-Inject inject 2 units of novolog [...] 114 Procedures Date Code Description Status 01/26/2025 25386 Glucose Monitoring Interpeta tion And Report Completed Medical Devices Description No Information Available Encounters Type Date Location Provider Dx Diagnosis Office Visit 01/26/2025 9:15a Main Office Shilpa Tabor NP E11.9 Type 2 diabetes mellitus without complications Assessments Date Code Description Provider 01/26/2025 E11.9 Type 2 diabetes mellitus wit hout complications Shilpa Tabor NP Plan of Treatment No Information Available Functional Status Description No Information Available Mental Status Description No Information Available Referrals Description No Information Available
--- OUTSIDE RECORDS SUMMARY | 2025-03-06 07:38 | XMS_ITS | Data Portability ---
Author Organization [place] [facility], [employer] Address [address] [place] [id number] Care Team Providers Care Supervisor Screen Printing Name Role Phone CRUZ HERMOSILLO Primary Care Provider [phone] CECE MARQUES Physician Radius Grinder Unavailable CHUNG RUBIO Test Engineering Manager/Senior Naval Parachutist Unavaila ble Assessment Encounter Date Assessment Date Assessment LastModified by Organization Details LastModified Time 12/05/2024 12/05/2024 Chart prep time: 5 minutes Face to face time with patient: 10:45-11:09 Documentation time: 11:-11;14 Total time spent on encounter: 34 E+M based on time __34_ min. [email or web address] Not available 12/05/2024 11:13:31 01/05/2025 01/05/2025 Chart prep time: 5 minutes Face to face time with patient: 4:14-4:34 Documentation time: 5:10-5:20 Total time spent on encounter: 35 Reviewed case with patients fertility specialist. E+M based on complexity; [email or web address] Not available 01/08/2025 17:20:03 02/13/2025 02/13/2025 Chart prep time: 5 minutes Face to face time with patient: 10:43-11:03 Documentation time:11:03-11 :09 Total time spent on encounter: 31 E+M based on time _31__ min. Not available 02/13/2025 11:08:41 Plan of Treatment Reminders Order Date Submit Date Provider Last Modified By Organization Details Last Modified Time Details Appointments 1st CCM 30 2024 08:15A M Chung Rubio RD Not available Not available Not available FOLLOW UP MEDICA L 30 2024 09:15A M Cece Marques PA-C Not available Not available Not available Lab glucos e tolera nce test, 2-hour 2024 025 [facility], [address], [place], [address], 01/08/2025 17:17:21 unlist ed lab - cardio iq(R) insuli n resist ance panel with score 2024 025 [facility], [address], [place], [address], 12/28/2024 23:50:32 HbA1c (hemog lobin A1c), blood 2024 025 [facility], [address], [place], [address], 12/28/2024 23:50:33 CMP, serum or plasma 2024 025 [facility], [address], [place], [address], 12/28/2024 23:50:31 CRP, high sensit ivity, serum or plasma 2024 025 [facility], [address], [place], [address], 12/28/2024 23:50:34 Referral endocr inolog y referr al 2024 025 [facility] Endocrinology Scheduling Dept, [address] [place] [address], [address], 02/08/2025 12:33:07 Procedures None record ed. Surgeries None record ed. Imaging None record ed. Medication Orders None record ed. Patient Targets Encounter Date Encounter Id Patient Goals Patient Target Last Modified By Organization Details Last Modified Time 12/05/2024 [id number] Goals: - prioritize meal planning/prepping and using [...] Loss: 175.2 [email or web address] Not available 11/24/2024 14:36:42 12/19/2024 [id number] Initial Weight: 219.7 Initial BMI: 38.9 10% Weight Loss:198 lbs 20% Weight Loss: 176 lbs [email or web address] Not available 12/05/2024 08:10:31 01/05/2025 [id number] Goals: - prioritize meal planning/prepping and using [...] Weight Loss: 197.7 20% Weight Loss: 175.2 Start Date:09/05/24 Initial Weight: 219.7 Initial BMI: 38.9 10% Weight Loss:198 lbs 20% Weight Loss: 176 lbs [email or web address] Not available 01/05/2025 16:05:27 01/30/2025 [id number] Initial Weight: 219.7 Initial BMI: 38.9 10% Weight Loss:198 lbs 20% Weight Loss: 176 lbs [email or web address] Not available 01/30/2025 10:49:36 02/13/2025 [id number] Initial Weight: 219.7 Initial BMI: 38.9 10% Weight Loss:198 lbs 20% Weight Loss: 176 lbs Goals: - prioritize meal planning/prepping and using [...] Weight Loss: 197.7 20% Weight Loss: 175.2 Start Date:09/05/24 Initial Weight: 219.7 Initial BMI: 38.9 10% Weight Loss:198 lbs 20% Weight Loss: 176 lbs [email or web address] Not available 02/13/2025 10:42:27 Patient InstructionsNo instructions recorded. Reason for Referral Endocrinology Referral for T ype 2 diabetes mellitus 44 yro female with T2DM working with [facility] on fertility. May require insulin therapy in . Referring Physician: Cece Marques Physician Radius Grinder, Encounter Date: 01/05/2025 Results Created Date Observation Date Name Description Value Unit Range Abnormal Flag Note LastModifiedBy Organization Detail LastModifiedTime 12/24/1912/28/2024 COMPR EHENS SERVANDO METAB OLIC PANEL glucose 110 mg/dL 65-99 high Fasti ng refer ence inter gal For someo ne witho ut known diabe mel, a gluco se value betwe en 100 and 125 mg/dL is consi stent with predi abete s and shoul d be confi rmed with a follo w-up test. Not Available [facility] - Manual Order Only [address], [place], [address], 12/28/2024 23:50:31 12/24/19 25 12/28/2024 COMPR EHENS SERVANDO METAB OLIC PANEL urea nitrogen (BUN) 11 mg/dL 7-25 normal Not Available [facility] - Manual Order Only [address], [place], [address], 12/28/2024 23:50:31 12/24/19 25 12/28/2024 COMPR EHENS SERVANDO METAB OLIC PANEL creatinine 0.81 mg/dL 0.50-0 .99 normal Not Available [facility] - Manual Order Only [address], [place], [address], 12/28/2024 23:50:31 12/24/19 25 12/28/2024 COMPR EHENS SERVANDO METAB OLIC PANEL eGFR 92 mL/mi n/1.7 3m2 > or = 60 normal Not Available [facility] - Manual Order Only [address], [place], [address], 12/28/2024 23:50:31 12/24/19 25 12/28/2024 COMPR EHENS SERVANDO METAB OLIC PANEL BUN/creatini ne ratio SEE NOTE: (calc ) 6-22 Not Repor huy: BUN and Creat inine are withi n refer ence range . Not Available [facility] - Manual Order Only [address], [place], [address], 12/28/2024 23:50:31 12/24/19 25 12/28/2024 COMPR EHENS SERVANDO METAB OLIC PANEL sodium 138 mmol/ L 135-14 6 normal Not Available [facility] - Manual Order Only [address], [place], [address], 12/28/2024 23:50:31 12/24/19 25 12/28/2024 COMPR EHENS SERVANDO METAB OLIC PANEL potassium 4.5 mmol/ L 3.5-5. 3 normal Not Available [facility] - Manual Order Only [address], [place], [address], 12/28/2024 23:50:31 12/24/19 25 12/28/2024 COMPR EHENS SERVANDO METAB OLIC PANEL chloride 107 mmol/ L 98-110 normal Not Available [facility] - Manual Order Only [address], [place], [address], 12/28/2024 23:50:31 12/24/19 25 12/28/2024 COMPR EHENS SERVANDO METAB OLIC PANEL carbon dioxide 26 mmol/ L 20-32 normal Not Available [facility] - Manual Order Only [address], [place], [address], 12/28/2024 23:50:31 12/24/19 25 12/28/2024 COMPR EHENS SERVADNO METAB OLIC PANEL calcium 8.7 mg/dL 8.6-10 .2 normal Not Available [facility] - Manual Order Only [address], [place], [address], 12/28/2024 23:50:31 12/24/19 25 12/28/2024 COMPR EHENS SERVANDO METAB OLIC PANEL protein, total 6.6 g/dL 6.1-8. 1 normal Not Available [facility] - Manual Order Only [address], [place], [address], 12/28/2024 23:50:31 12/24/19 25 12/28/2024 COMPR EHENS SERVANDO METAB OLIC PANEL albumin 4.0 g/dL 3.6-5. 1 normal Not Available [facility] - Manual Order Only [address], [place], [address], 12/28/2024 23:50:31 12/24/19 25 12/28/2024 COMPR EHENS SERVANDO METAB OLIC PANEL globulin 2.6 g/dL_ (calc ) 1.9-3. 7 normal Not Available [facility] - Manual Order Only [address], [place], [address], 12/28/2024 23:50:31 12/24/19 25 12/28/2024 COMPR EHENS SERVANDO METAB OLIC PANEL albumin/glob ulin ratio 1.5 (calc ) 1.0-2. 5 normal Not Available [facility] - Manual Order Only [address], [place], [address], 12/28/2024 23:50:31 12/24/19 25 12/28/2024 COMPR EHENS SERVANDO METAB OLIC PANEL bilirubin, total 0.3 mg/dL 0.2-1. 2 normal Not Available [facility] - Manual Order Only [address], [place], [address], 12/28/2024 23:50:31 12/24/19 25 12/28/2024 COMPR EHENS SERVANDO METAB OLIC PANEL alkaline phosphatase 63 U/L 31-125 normal Not Available [facility] - Manual Order Only [address], [place], [address], 12/28/2024 23:50:31 12/24/19 25 12/28/2024 COMPR EHENS SERVANDO METAB OLIC PANEL AST 17 U/L 10-30 normal Not Available [facility] - Manual Order Only [address], [place], [address], 12/28/2024 23:50:31 12/24/19 25 12/28/2024 COMPR EHENS SERVANDO METAB OLIC PANEL ALT 26 U/L 6-29 normal Not Available [facility] - Manual Order Only [address], [place], [address], 12/28/2024 23:50:31 12/24/19 25 12/28/2024 CARDI O IQ(R) INSUL IN RESIS TANCE PANEL WITH SCORE insulin, intact, lc/MS/MS 12 uIU/m L < or = 16 Insul in mala ntrat ion can be conve rted to pmol/ L by apply ing the conve rsion facto r: 1 uIU/m L = 5.97 pmol/ L For addit ional infor alex vega e refer to http: //[facility] catjose rankin.Que stDia gnost ics.c om/fa q/FAQ 170 [...] for clini todd purpo ses. Not Available [facility] - Manual Order Only [address], [place], [address], 12/28/2024 23:50:32 12/24/19 25 12/28/2024 CARDI O IQ(R) INSUL IN RESIS TANCE PANEL WITH SCORE C-peptide, lc/MS/MS 2.04 NG/mL 0.68-2 .16 Not Available [facility] - Manual Order Only [address], [place], [address], 12/28/2024 23:50:32 12/24/19 25 12/28/2024 CARDI O IQ(R) INSUL IN RESIS TANCE PANEL WITH SCORE insulin resistance score 53 < or = 66 Insul in Sensi [...] infor alex vega e refer to http: //deena rankin.Que stDia gnost ics.c om/fa q/FAQ 205 (This link is being provi ded for infor robi nal/e ducat ional purpo ses only. ) This test was devel oped and its ely tical perfo rmanc e yeimi cteri stics have been deter mined by [facility]. It has not been clear ed or appro mame by the FDA. This assay has been valid ated pursu ant to the CLIA regul ation s and is used for clini todd purpo ses. Not Available [facility] - Manual Order Only [address], [place], [address], 12/28/2024 23:50:32 12/24/19 25 12/28/2024 HEMOG LOBIN A1C hemoglobin A1C 6.0 % <5.7 high For someo ne witho ut known diabe mel, a hemog lobin A1c value betwe en 5.7% and 6.4% is consi stent with predi abete s and shoul d be confi rmed with a follo w-up test. For someo ne with known diabe mel, a value <7% indic ates that their diabe mel is well contr olled . A1c targe ts shoul d be indiv idual ized based on durat ion of diabe mel, age, comor bid condi tions , and other consi derat ions. This assay resul t is consi stent with an incre ased risk of diabe mel. Curre ntly, no conse nsus exist s regar karol use of hemog lobin A1c for diagn osis of diabe mel for child nubia. Not Available [facility] - Manual Order Only [address], [place], [address], 12/28/2024 23:50:33 12/24/19 25 12/28/2024 CARDI O IQ(R) HS CRP hs CRP 15.5 mg/L <1.0 high Refer ence Range : Optim al <1.0 mg/L, accor ding to Isaura GORDILLO et al. Endoc r Pract .2017 ;23(S uppl 2):1- 87. The AHA/C DC Guide lines recom mend hs-CR P range s for ident ifyin g Relat servando Cardi ovasc ular Risk in patie nts ages >17 years : <1.0 mg/L Lower Relat servando Cardi ovasc ular Risk; 1.0-3 .0 mg/L [place] ge Relat servando Cardi ovasc ular Risk; 3.1-1 0.0 mg/L Highe r Relat servando Cardi ovasc ular Risk. If resul t [...] Pears on TA, Mensa h GA, Nery BEE, et al. Marke rs of infla mmati [...] AHA/C DC Guide lines <1.0 Lower relat servando cardi ovasc ular risk. 1.0-3 .0 [place] ge relat servando cardi ovasc ular risk. 3.1-1 0.0 Highe r relat servando cardi ovasc ular risk. Consi harley retes [...] Pears on TA, Mensa h [place], Nery BEE, et al. Marke rs of infla mmati [...] latio n 2003; 107(3 ): 499-[address] to have a [employer] cori copy faxed has been [place]: [phone] Not Available [facility] - Manual Order Only [address], [place], [address], 12/28/2024 23:50:34 Result Notes None recorded. Problems Name Problem SNOMED Code Status Onset Date Resolution Date Notes Provider Name and Address Organization Details Recorded Time Type 2 diabetes mellitus 87204944 Active 12/2024 FG 110, I 12, Cpep 2.04, IR 53, A1C 6.0%, hsCRP 15.5 09/2024 I 5, Cpep 2.08, IR 26, A1C 6.8% Cece Marques PA-C [address], [place], [address], [place] [facility] 09:08:43 Female infertil ity 5804233 Active 2024 Cece Marques PA-C [address], [place], [address], [place] [facility] 15:38:24 Severe obesity 26451251062 104 Active 10/2024 rT3 26, HDL 43, LDL pattern B, ApoB 81, lp(a) 51, hs CRP 17.8 08/2024 TSH 3.40 Cece Marques PA-C [address], [place], [address], [place] [facility] 11:08:21 Vitamin D deficien cy 09817765 Active 08/2024 Vit D 29, Cece Marques PA-C [address], [place], [address], [place] [facility] 15:39:55 Clostrid ium difficil e diarrhea 72952619678 02 Completed 202409/05/2024 Cece Marques PA-C [address], [place], [address], [place] [facility] 03/31/202 5 15:43:29 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 Procedures Surgical History [...] 500 mg tablet,exten ded release 24 hr TAKE 1 TABLET BY MOUTH EVERY DAY WITH FOOD active Not Available Not Available No t Available Novolog FlexPen U-100 Insulin aspart 100 unit/mL (3 mL) subcutaneous INJECT 2 UNITS SUBCUTANEOU SLY 10 MINUTES PRIOR TO LUNCH. DISCARD PEN 28 DAYS AFTER FIRST USE active Not Available Not Available No t Available chlorhexidin e gluconate 0.12 % mouthwash RINSE 15 ML 2 TIMES A DAY *DO NOT SWALLOW* active Not Available Not Available No t Available Dexcom G7 Sensor device PLACE ON SKIN, REPLACE EVERY 10 DAYS active Not Available Not Available No t Available Nydia 2nd Gen Pen Needle 32 gauge x 5/32 USE TO INJECT NOVOLOG SUBCUTANEOU SLY ONCE DAILY BEFORE LUNCH. active Not Available Not Available No t Available Vitals Date Recorded Body height Heart rate Oxygen saturation Oxygen saturation in Arterial blood by Pulse oximetry Body mass index (BMI) Body weight Systolic And Diastolic Provider Name and Address Organization Details Last Updated DateTime 5 160.02 cm 76 /min 99 % 99 % 38 kg/m2 50838.2 2 g 122/87 mm[Hg] Alpesh Term[employer] [facility] 5 10:34:58 Date Recorded Body height Body mass index (BMI) Body weight Provider Name and Address Organization Details Last Updated DateTime 12/19/2024 160.02 cm 37.5 kg/m2 24655.[address] [facility] 12/19/2024 08:22:08 Date Recorded Body height Oxygen saturation Oxygen saturation in Arterial blood by Pulse oximetry Heart rate Body mass index (BMI) Body weight Systolic And Diastolic Provider Name and Address Organization Details Last Updated DateTime 5 160.02 cm 98 % 98 % 83 /min 37.6 kg/m2 58460.2 8 g 132/78 mm[Hg] Margarito Esme [facility] 5 15:59:10 Date Recorded Body height Body mass index (BMI) Body weight Heart rate Systolic And Diastolic Provider Name and Address Organization Details Last Updated DateTime 01/30/2025 160.02 cm 36.7 kg/m2 32024.72 g 81 /min 132/74 mm[Hg] Daniella Patten [facility] 01/30/2025 10:52:43 Date Recorded Body height Heart rate Oxygen saturation Oxygen saturation in Arterial blood by Pulse oximetry Body mass index (BMI) Body weight Systolic And Diastolic Provider Name and Address Organization Details Last Updated DateTime 5 160.02 cm 81 /min 96 % 96 % 36.6 kg/m2 62426.1 8 g 119/70 mm[Hg] Alpesh Ramirez [facility] 5 10:33:14 Social History Question Answer Notes LastModified by Organizat ion Details LastModified Time Tobacco Smoking Status Never Smoker Cece Marques PA-C [facility] [address] [facility] [address], [place], [address], [place] [facility] 09/05/2024 15:47:00 What Type Of Diet Are You Following? REGULAR [email or web address] Information not available 09/05/2024 How Many Times Per Week Do You Exercise? 1-2 Times Per Week [email or web address] Information not available 09/05/2024 Have There Been Any Changes To Your Family Or Social Situation? No [email or web address] Information no t available 09/05/2024 What Is Your Relationship Status? [email or web address] Information not available 09/05/2024 Do You Have Any Dietary Restrictions? No [email or web address] Information not available 09/05/2024 Do You Have Any Future Plans To Get ? Yes, I Want To Become [email or web address] Information not available 09/05/2024 Sex: Unknown Functional Status Question Answer Note LastModified by Organizat ion Details LastModified Time How many times per week do you consume alcohol? Less than 1 time per week [email or web address] Information not available 09/05/2024 Do you use any illicit or recreational drugs? No Information not available 09/05/2024 What is your level of alcohol consumption? Occasional Information not available 09/05/2024 What is your exercise level? Occasional [email or web address] Information not available 09/05/2024 Mental Status Question Answer Note LastModified by Organization D etails LastModified Time Do you feel stressed (tense, restless, nervous, or anxious, or unable to sleep at night)? [id number] [email or web address] Information not available 09/05/2024 Family History Relationship Description Onset Age of this Age Resolved Age Notes LastModified by Organization Details LastModified Time Maternal Grandmother Diabetes mellitus [email or web address] Not available 09/05 15:41:33 Maternal Grandfather Diabetes mellitus [email or web address] Not available 09/05 15:41:33 Father Diabetes mellitus Not available 09/05 15:41:43 Mother Diabetes mellitus [email or web address] Not available 09/05 15:41:45 Medical History No medical history recorded. Gynecological HistoryNo gynecological history recorded. Obstetrics History GPAL:G 0 P 0 0 0 0 Past Encounters Encounter ID Performer Location Encounter Start Date Encounter Closed Date Diagnosis/Indication Diagnosis SNOMED-CT Code Diagnosis ICD10 Code Diagnosis IMO Codes Diagnosis Note [id number] Cece Marques PA-C [address] [place] [address] 09/05/2024 14:54:55 09/05/2024 16:48:29 Severe obesity 5741648205 9104 E66.812 E66.01 Z68.38 [id number] Andrew Restrepo has a history of weight [...] as below. Type 2 lm betes mellitus 83468293 E11.9 34959782 They are asymptomat ic and not on [...] intermitte nt fasting. Vitamin D deficiency 347 56231 E55.9 82328 She is asymptomat ic and currently on daily supplement ation. She is unsure of what dose she is taking.Res ults: 08/2023 Vit D 29Plan- Continue on Vit D supplement ation Female infertility 54752 08 N97.9 05224 Working with [employer]. Referred for weight loss in the setting of infertilit y. Her and her are trying to get .P bobbi- Reviewed how 5-10% weight loss can significan tly improve fertility [id number] Chung Rubio [facility] [address] [place] [address] 09/12/2024 09:57:22 09/12/2024 11:54:18 [id number] Chung Rubio [facility] [address] [place] [address] 10/12/2024 14:28:16 10/12/2024 15:11:44 [id number] Cece Marques PA-C [address] [place] [address] 10/24/2024 14:15:02 10/24/2024 14:45:15 Severe obesity 6333247447 9104 E66.812 E66.01 Z68.38 [id number] Andrew Restrepo has a history of weight [...] CHO intake. Type 2 lm patsy mellitus 45471949 E11.9 46502510 They are asymptomat ic and not on [...] consider intermitte nt fasting. 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 No significan t personal or family history of heart disease.Re sults: 09/2023 TC 153, HDL 43, TG 146, LDL 85, nonHDL 110, LDL pattern B, ApoB 81, lp(a) 51, hsCRP 17.8Plan- Focus on heart healthy diet, minimizing intake of hyper-proc essed foods and increasing intake of xohon7u.- Reviewed impact of exercise and genetics on HDL levels.- Will continue to monitor cholestero l panel. [id number] Chung Rubio [address] [facility] [address] [place] [address] 11/14/2024 09:18:59 11/14/2024 09:46:08 [id number] Cece Marques PA-C [address] [place] [address] 12/05/2024 10:30:41 12/05/2024 11:55:29 Severe obesity 5889054919 9104 E66.812 E66.01 Z68.38 [id number] She reports a history of fluctuatin g [...] lbs. 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 Type 2 lm betes mellitus 04293958 E11.9 21811201 They are asymptomat ic and not on [...] n noted may consider intermitte nt fasting. [id number] Chung Rubio [address] [facility] [place] [address] 12/19/2024 08:18:31 12/19/2024 08:47:30 [id number] Cece Marques PA-C [address] [place] [address] 01/05/2025 15:46:40 01/05/2025 16:39:39 Severe obesity 9688743949 9104 E66.812 E66.01 Z68.37 [id number] Improving. She is currently obese with BMI 37.6 at 212lbs. She has gained 1lbs BFM since her last visit and is down 5lbs BFM since her start. She is currently following a high-prote in, low-sugar diet. She reports that GI sx with peanuts and peanut butter. She has been meal prepping more frequently . Patient is mindful of dietary intake, including meal timing and frequency; reports eating in multiple small installmen ts throughout the day.Plan- Continue current dietary and behavioral strategies , with emphasis on sustainabi lity.- Patient education provided regarding the relationsh ip between stress, eating behaviors, and glycemic control.- Maintain adequate hydration. Type 2 lm betes mellitus 79422739 E11.9 84040040 Improving. They are asymptomat ic and not on pharmacoth erapy. She has significan t family history for T2DM in her maternal grandparen ts and both parents. She has intermitte ntly been on Metformin in the past for prediabete s and has tolerated this medication well. The patient expresses confusion regarding being referred to endocrinol chela for further evaluation , as requested by her reproducti ve endocrinol ogist (Dr. Riley, OBGYN/chip [facility], [facility]).Resu lts: 12/2024 FG 110, I 12, Cpep 2.04, IR 53, A1C 6.0%, hsCRP 15. I 5, Cpep 2.08, IR 26, A1C 6.8%Plan- Called Dr. Riley and reviewed patients glycemic control and possible need for insulin therapy during . Endo referral placed. Will order 2HGTT for further insight.- Reviewed pharmacoth erapy options including Metformin and GLPS. She would like to defer and prioritize nutritiona l changes.- Continue to moderate CHO intake and pair CHOs with fiber,prot ein, and periprandi al exercise.- Continue to eat meals in the following order nonstarchy vegetables , protein then starchy CHOs.- Consider exercise as tool to improve insulin sensitivit y and glucose uptake into SMM.- Prescribed CGM to assist with patient understand ing of glucose/in sulin/CHO intake.- May discuss use of allulose as replacemen t to table sugar or 30g daily supplement to minimize insulin spikes, reduce cravings- If no progressio n noted may consider intermitte nt fasting. [id number] Chung [address] [place] [address] 01/30/2025 10:40:54 01/30/2025 11:18:40 [id number] Cece Marques PA-C [place] [address] [place] [address] 02/13/2025 10:28:12 02/13/2025 11:07:42 Severe obesity 7210613743 9104 E66.812 E66.01 Z68.36 [id number] She is currently obese with BMI 36.6 at 206lbs. She has lost 8lbs BFM over the past 6 weeks and 13lbs BFM since her start. Has reduced meal frequency from six meals to three per day to stabilize glycemic control. Has experiment ed with introducin g small amounts of CHOs to assess response with CGM and improve sustainabi lity of nutrition. Noted that pasta causes prolonged hyperglyce cyndi overnight; continues to adjust meal timing and compositio n. She is currently following a high-prote in, low-sugar diet. She reports that GI sx with peanuts and peanut butter. She has been meal prepping more frequently .Plan- Reviewed importance of variety in metabolic health and sustainabi lity of nutrition plan. Reviewed goals to incorporat e a diverse source of of protein and vegetables to support microbiome , micronutri ents, improve metabolic flexibilit y and prevent boredom.- Reviewed importance of sustainabi lity of nutrition plan to prevent weight cycling. Discussed goal of small changes over time.- Continue to prioritize protein and moderate CHO intake. Type 2 lm betes mellitus [id number] E11.9 [id number] Andrew Restrepo has a history of type 2 diabetes mellitus and is actively managing glycemic control. She reports recent initiation of NovoLog insulin at 1 2 units daily, in addition to ongoing metformin 1500mg QD therapy. She has experience d fewer postprandi al hyperglyce juan r episodes since starting NovoLog. Continuous glucose monitoring with Dexcom reveals 99% of readings within target range and an average glucose of 125 mg/dL. She continues to experiment with dietary modificati ons to optimize glycemic response. No significan t symptoms related to diabetes are reported. She follows with an endocrinol ogist for diabetes management in . She is asymptomat ic. She has significan t family history for T2DM in her maternal grandparen ts and both parentsRes ults: 01/2025 2hrGTT FG 113, 2HR 171, CGM average BG 125.12/2024 FG 110, I 12, Cpep 2.04, IR 53, A1C 6.0%, hsCRP 15. I 5, Cpep 2.08, IR 26, A1C 6.8%Plan- Continue on Metformin 1500mg QD, Novolog 2 U QD per endocrinol ogist.- GLPSs deferred due to active work towards . - Continue with use of CGM to assist with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
[2025-03-06 07:41] VITALS: BP 118/62; PULSE 72; O2SAT 99; BMI 40.2
== END 2025-03-06 08:09 | disposition home or self-care (01) ==
LOC: HO.HGI 07:35
PROVIDERS: PCP Nurse Practitioner Family; Visit Provider Internal Medicine Gastroenterology
DX: R74.8 Abnormal levels of other serum enzymes (principal); R19.7 Diarrhea, unspecified; K21.9 Gastro-esophageal reflux disease without esophagitis; R14.0 Abdominal distension (gaseous)
CPT/HCPCS: 99213